=== PATIENT | male | born 1965 | race American Indian/Alaskan Native ===

== ENCOUNTER 2018-11-06 12:30 | Inpatient (IN) | payer MEDICARE ==
--- NOTE | 2018-11-06 12:43 | Event Note ---
ED Screening Note ED Screening Note: severe luq and chest pain recent rib trauma and rupt diaph. pmh chf aicd htn obese cig none etoh none drugs none does not recall home meds new to the area no fever no n/v/d This initial assessment/diagnostic orders/clinical plan/treatment(s) is/are subject to change based on patients health status, clinical progression and re- assessment by fellow clinical providers in the ED. Further treatment and workup at subsequent clinical providers discretion. Patient/guardian urged not to elope from the ED as their condition may be serious if not clinically assessed and managed. Initial orders include:
--- NOTE | 2018-11-06 13:35 | XRay Report ---
ROUTINE CHEST, TWO VIEWS: HISTORY: chest pain. No comparison. A single lead pacemaker device terminates in the right ventricle. Heart size and pulmonary vessels are within normal limits. A small left pleural effusion is identified. Otherwise, the lungs are clear. IMPRESSION: Small left pleural effusion.
[2018-11-06 13:50] LABS: Alanine Aminotransferase 20 units/L (7-56); Albumin 3.8 g/dL (3.9-5); BUN/Creatinine Ratio 9; Blood Urea Nitrogen 11 mg/dL (9-20); Calcium 9.6 mg/dL (8.4-10.2); Hemolysis Index 25
[2018-11-06 13:51] LABS: Hematocrit 43.2 % (35.5-45.6); Hemoglobin 14.2 gm/dl (11.8-15.2); Mean Corpuscular HGB Conc 33 % (32-34); Mean Corpuscular Volume 84 fl (84-94); Platelet Count 205 K/mm3 (140-440); Red Blood Count 5.16 M/mm3 (3.65-5.03)
[2018-11-06 14:34] LABS: Basophils % (Manual) 0 % (0.0-1.8); Total Cells Counted 100
[2018-11-06 14:35] LABS: Platelet Estimate Consistent w Auto
[2018-11-06] MEDS ORDERED: ZOFRAN IV ONE (14:36)
[2018-11-06] MEDS ORDERED: MORPHINE IV ONE (14:36)
[2018-11-06] MEDS ORDERED: TORADOL IV ONE (14:36)
[2018-11-06] MEDS ORDERED: ATROVENT IH ONE (16:56)
[2018-11-06] MEDS ORDERED: PROVENTIL IH ONE (16:56)
--- NOTE | 2018-11-06 17:15 | Emergency Department Report ---
ED Chest Pain HPI - General Chief Complaint: Abdominal Pain Stated Complaint: ABD PAIN/CP Time Seen by Provider: 11/06/18 12:43 Source: patient Mode of arrival: Stretcher Limitations: No Limitations - History of Present Illness Initial Comments: Patient is a 53-year-old male who has a past medical history of several broken ribs that occurred in June of this year as well as a "ruptured diagram" in August who is complaining of left sided flank and chest pain. Patient states that pain has been worsening for the past 2-3 days. States it is a very painful cough that is nonproductive. Patient has some shortness of breath as well. Patient denies fevers chills nausea vomiting diarrhea at this time. Patient denies any trauma. Patient has a history of congestive heart failure and COPD and does take nebulized treatments regularly. Severity scale (0 -10): 2 - Related Data Allergies Allergy/AdvReac Type Severity Reaction Status Date / Time doxycycline Allergy Hives Verified 11/06/18 12:40 lisinopril Allergy Anaphylaxis Verified 11/06/18 12:39 spironolactone Allergy Hives Verified 11/06/18 12:40 Heart Score - HEART Score History: Slightly suspicious EKG: Non-specific Age: 45-65 Risk factors: 1-2 risk factors Troponin: < normal limit HEART Score: 3 ED Review of Systems ROS: Stated complaint: ABD PAIN/CP Other details as noted in HPI Comment: All other systems reviewed and negative ED Past Medical Hx - Past Medical History Previous Medical History?: Yes Hx Congestive Heart Failure: Yes Hx COPD: Yes - Surgical History Past Surgical History?: Yes Additional Surgical History: Embolectomy ED Physical Exam - General Limitations: No Limitations General appearance: alert, in no apparent distress - Head Head exam: Present: atraumatic, normocephalic - Eye Eye exam: Present: normal appearance, PERRL, EOMI - ENT ENT exam: Present: mucous membranes moist - Neck Neck exam: Present: normal inspection - Respiratory Respiratory exam: Present: normal lung sounds bilaterally, rhonchi (lest base), chest wall tenderness (left lower ribs with crepitus when palpation of ribs). Absent: respiratory distress, wheezes, rales - Cardiovascular Cardiovascular Exam: Present: regular rate, normal rhythm, normal heart sounds. Absent: systolic murmur, diastolic murmur, rubs, gallop - GI/Abdominal GI/Abdominal exam: Present: soft, normal bowel sounds. Absent: distended, tenderness, guarding, rebound - Rectal Rectal exam: Present: deferred - Extremities Exam Extremities exam: Present: normal inspection - Back Exam Back exam: Present: normal inspection - Neurological Exam Neurological exam: Present: alert, oriented X3 - Psychiatric Psychiatric exam: Present: normal affect, normal mood - Skin Skin exam: Present: warm, dry, intact, normal color. Absent: rash ED Medical Decision Making - Lab Data Result diagrams: 11/06/18 13:04 11/06/18 13:04 Lab Results 11/06/18 11/06/18 Range/Units 13:04 13:04 WBC 4.9 (4.5-11.0) K/mm3 RBC 5.16 H (3.65-5.03) M/mm3 Hgb 14.2 (11.8-15.2) gm/dl Hct 43.2 (35.5-45.6) % MCV 84 (84-94) fl MCH 28 (28-32) pg MCHC 33 (32-34) % RDW 17.0 H (13.2-15.2) % Plt Count 205 (140-440) K/mm3 Fannin % (Auto) Bread Icer Add Manual Diff Complete Total Counted 100 Seg Neuts % (Manual) 66.0 (40.0-70.0) % Band Neutrophils % 0 % Lymphocytes % (Manual) 21.0 (13.4-35.0) % Reactive Lymphs % (Man) 0 % Monocytes % (Manual) 12.0 H (0.0-7.3) % Eosinophils % (Manual) 1.0 (0.0-4.3) % Basophils % (Manual) 0 (0.0-1.8) % Metamyelocytes % 0 % Myelocytes % 0 % Promyelocytes % 0 % Blast Cells % 0 % Nucleated RBC % Not Reportable Seg Neutrophils # Man 3.2 (1.8-7.7) K/mm3 Band Neutrophils # 0.0 K/mm3 Lymphocytes # (Manual) 1.0 L (1.2-5.4) K/mm3 Abs React Lymphs (Man) 0.0 K/mm3 Monocytes # (Manual) 0.6 (0.0-0.8) K/mm3 Eosinophils # (Manual) 0.0 (0.0-0.4) K/mm3 Basophils # (Manual) 0.0 (0.0-0.1) K/mm3 Metamyelocytes # 0.0 K/mm3 Myelocytes # 0.0 K/mm3 Promyelocytes # 0.0 K/mm3 Blast Cells # 0.0 K/mm3 WBC Morphology Not Reportable Hypersegmented Neuts Not Reportable Hyposegmented Neuts Not Reportable Hypogranular Neuts Not Reportable Smudge Cells Not Reportable Toxic Granulation Not Reportable Toxic Vacuolation Not Reportable Dohle Bodies Not Reportable Pelger-Huet Anomaly Not Reportable Maribell Rods Not Reportable Platelet Estimate Consistent w auto Clumped Platelets Not Reportable Plt Clumps, EDTA Not Reportable Large Platelets Not Reportable Giant Platelets Not Reportable Platelet Satelliting Not Reportable Plt Morphology Comment Not Reportable RBC Morphology Not Reportable Dimorphic RBCs Not Reportable Polychromasia Not Reportable Hypochromasia Not Reportable Poikilocytosis Not Reportable Anisocytosis Not Reportable Microcytosis Not Reportable Macrocytosis Not Reportable Spherocytes Not Reportable Pappenheimer Bodies Not Reportable Sickle Cells Not Reportable Target Cells Not Reportable Tear Drop Cells Not Reportable Ovalocytes Not Reportable Helmet Cells Not Reportable Retana-[place] Bodies Not Reportable Benton Rings Not Reportable Jessi Cells Not Reportable Bite Cells Not Reportable Crenated Cell Not Reportable Elliptocytes Few Acanthocytes (Spur) Not Reportable Rouleaux Not Reportable Hemoglobin C Crystals Not Reportable Schistocytes Not Reportable Malaria parasites Not Reportable Mil Bodies Not Reportable Hem Pathologist Commnt No Sodium 143 (137-145) mmol/L Potassium 4.7 (3.6-5.0) mmol/L Chloride 106.6 (98-107) mmol/L Carbon Dioxide 23 (22-30) mmol/L Anion Gap 18 mmol/L BUN 11 (9-20) mg/dL Creatinine 1.2 (0.8-1.5) mg/dL Estimated GFR > 60 ml/min BUN/Creatinine Ratio 9 % Glucose 85 (75-100) mg/dL Calcium 9.6 (8.4-10.2) mg/dL Total Bilirubin 0.40 (0.1-1.2) mg/dL AST 37 (5-40) units/L ALT 20 (7-56) units/L Alkaline Phosphatase 117 (35-129) units/L Troponin T < 0.010 (0.00-0.029) ng/mL Total Protein 7.0 (6.3-8.2) g/dL Albumin 3.8 L (3.9-5) g/dL Albumin/Globulin Ratio 1.2 % - EKG Data -: EKG Interpreted by Ms - EKG Data 11/06/18 17:15 EKG shows sinus rhythm a rate of 75 axis normal interval show prolonged QT but no ST segment elevations or depressions. Time of interpretation is 1255 - Radiology Data [facility] [address] [place] [address] XRay Report Signed Patient: SOBIA KRUGER MR#: [id number] : 1965 Acct:[id number] Age/Sex: 53 / M ADM Date: 11/06/18 Loc: ED Attending Dr: Ordering Physician: TANIA LANDRUM Date of Service: 11/06/18 Procedure(s): XR chest routine 2V Accession Number(s): [id number] cc: TANIA LANDRUM Fluoro Time In Minutes: ROUTINE CHEST, TWO VIEWS: HISTORY: chest pain. No comparison. A single lead pacemaker device terminates in the right ventricle. Heart size and pulmonary vessels are within normal limits. A small left pleural effusion is identified. Otherwise, the lungs are clear. IMPRESSION: Small left pleural effusion. Transcribed By: TTR Dictated By: CLARENCE ABRAMS JR, MD Electronically Authenticated By: CLARENCE ABRAMS JR, MD Signed Date/Time: 11/06/18 133 DD/ 1329 TD/TT: 11/06/18 1330 - Medical Decision Making Patient is a 53-year-old [place] male with a past medical history of recent rib fractures which are poorly healed as well as diaphragm rupture according to the patient is complaining of left upper flank pain. Patient's x-ray shows that the patient has a [id number] sized pleural effusion. Patient never had a pleural effusion in the past. Patient while in the emergency department and started having some wheezing and shortness of breath was given a neb treatment. Patient was given pain meds. Patient to be admitted to the hospitalist service at this time. Critical care attestation.: If time is entered above; I have spent that time in minutes in the direct care of this critically ill patient, excluding procedure time. ED Disposition Clinical Impression: Pleural effusion, Acute exacerbation of chronic obstructive pulmonary disease (COPD), Acute chest pain Disposition: OP ADMIT IP TO THIS HOSP Is pt being admited?: Yes Condition: Stable Instructions: Chronic Obstructive Pulmonary Disease (ED), Chest Pain (ED) Time of Disposition: 17:27
[2018-11-06] MEDS ORDERED: SODIUM CHLORIDE FLUSH SYRINGE 10 ML IV PRN (17:35)
[2018-11-06] MEDS ORDERED: TYLENOL PO PRN (17:35)
[2018-11-06] MEDS ORDERED: ZOFRAN IV PRN (17:35)
--- NOTE | 2018-11-06 17:35 | History and Physical Report ---
History of Present Illness Chief complaint: I keep coughing and it makes my side hurt, and im short of breath History of present illness: 53 YO Male with COPD, CHF, Obesity Hypoventilation presents to ED for evaluation . Pt states that he has experienced pain to his left flank over the past 3 days with worsening symptoms over the past 2 days. Pt reports coughing episodes followed by pain to the left flank. Pt also reports diaphragmatic injury 3 months ago and that the was informed that he may need surgery. Pt acknowledges shortness of breath, and nonproductive cough, increased nebulizer therapy without relief. Pt also reports dypsnea on exertion, dypsnea at rest, decreased exercise tolerance, Orthopnea/PND, as well as leg edema. Pt denies fever, chills, CP, Palpitations, NVD, Trauma, BRBPR, Prolonged travel/immobility, Unilateral leg swelling, calf pain, or recent ill contacts. Pt denies compliance with cardiac diet as well as medication. Pt unable to recall his prescribed medication. Pt transported to [facility] via private vehicle. Pt seen and evaluated in ED and found to have symptoms consistent with CHF Decompensation, as well as COPD Exacerbation. Pt admitted to telemetry. CT Chest pending at time of a dmission. No prior admission for review. No medication listed for reconciliation at time of admission. Past History Past Medical History: COPD, heart failure, other (Obesity Hypoventilation, Diaphragmatic injury,) Past Surgical History: Other (Embelectomy) Social history: single. denies: smoking, alcohol abuse, prescription drug abuse Family history: diabetes, hypertension Medications and Allergies Allergies Allergy/AdvReac Type Severity Reaction Status Date / Time doxycycline Allergy Hives Verified 11/06/18 12:40 lisinopril Allergy Anaphylaxis Verified 11/06/18 12:39 spironolactone Allergy Hives Verified 11/06/18 12:40 Review of Systems Constitutional: no weight loss, no weight gain, no fever Ears, nose, mouth and throat: no ear pain, no ear discharge, no tinnitis, no decreased hearing Cardiovascular: orthopnea, edema, shortness of breath, dyspnea on exertion, paroxysmal nocturnal dyspnea, decreased exercise tolerance, no chest pain, no syncope Respiratory: cough, shortness of breath, dyspnea on exertion, no cough with sputum, no excessive sputum, no wheezing Gastrointestinal: no nausea, no vomiting, no diarrhea, no constipation Genitourinary Male: no hematuria, no flank pain, no discharge, no urinary frequency, no urinary hesitancy Rectal: no pain, no incontinence, no bleeding Musculoskeletal: no neck stiffness Integumentary: no rash, no pruritis, no redness, no sores Neurological: no transient paralysis, no paralysis, no weakness, no parathesias, no numbness Psychiatric: no anxiety, no memory loss, no change in sleep habits, no sleep disturbances Endocrine: no cold intolerance, no heat intolerance, no polyphagia, no excessive thirst, no polydipsia, no polyuria Hematologic/Lymphatic: no easy bruising, no easy bleeding Allergic/Immunologic: no urticaria, no allergic rhinitis, no wheezing Exam - Constitutional General appearance: Present: mild distress - EENT Eyes: Present: PERRL ENT: hearing intact, clear oral mucosa - Neck Neck: Present: supple, normal ROM - Respiratory Respiratory effort: normal Respiratory: bilateral: diminished, rhonchi - Cardiovascular Heart Sounds: Present: S1 & S2. Absent: rub, click - Extremities Extremities: pulses symmetrical Extremity abnormal: edema Peripheral Pulses: within normal limits - Abdominal General gastrointestinal: Present: soft, non-tender, non-distended, normal bowel sounds Male genitourinary: Present: normal - Integumentary Integumentary: Present: clear, warm, dry - Musculoskeletal Musculoskeletal: gait normal, strength equal bilaterally - Psychiatric Psychiatric: appropriate mood/affect, intact judgment & insight - Neurologic Neurologic: CNII-XII intact, moves all extremities - Additional findings Additional findings: Left chest wall tenderness with palpation in area of the left flank at site of previous rib fractures. Results - Labs CBC & Chem 7: 11/07/18 05:06 11/07/18 05:06 Labs: Abnormal lab results 11/06/18 11/06/18 Range/Units 13:04 13:04 RBC 5.16 H (3.65-5.03) M/mm3 RDW 17.0 H (13.2-15.2) % Monocytes % (Manual) 12.0 H (0.0-7.3) % Lymphocytes # (Manual) 1.0 L (1.2-5.4) K/mm3 Albumin 3.8 L (3.9-5) g/dL Assessment and Plan - Patient Problems (1) CHF (congestive heart failure) Current Visit: Yes Status: Acute Qualifiers: Heart failure chronicity: acute on chronic Plan to address problem: Admit to telemetry, cardiology consult, Echo, strict I/O, daily weight, bnp, thyroid panel, magnesium level, chest x ray, monitor uop q shift, monitor blood pressure q shift, afterload reduction. pulse oximetry (2) Obesity hypoventilation syndrome Current Visit: Yes Status: Acute Plan to address problem: supplemental oxygen, nebulizer therapy, NIPPV as clinically indicated. 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
--- NOTE | 2018-11-06 17:46 | Cat Scan Report ---
PROCEDURE: CT CHEST W CON TECHNIQUE: Computerized axial tomography of the chest was performed during the IV injection of iodin ated nonionic contrast. CT DOSE LENGTH PRODUCT: 1226.3 mGycm HISTORY: left sided pleural effusion hx of diaphragm injusy COMPARISONS: None . FINDINGS: Pulmonary out flow tract, right and left main pulmonary arteries: No abnormality is seen. Pericardium: No evidence of pericardial effusion. Thoracic aorta: No evidence of aneurysmal dilatation or dissection. Coronary arteries: There are unremarkable. Mediastinum and hilar regions: Non specific subcentimeter lymph nodes are visualized. No pathologica lly enlarged lymph nodes or masses are identified. Lung Arredondo: There is a large mass with fat density visualized in the left pleural space. This extend s craniocaudally posteriorly approximately 12 cm, transversely approximately 10.5 cm in craniocaudal lateral aspect of the mass approximately 3.1 cm. Large lipoma or lipomatosis of the left pleural spac e is suspected. Liposarcoma is not entirely excluded. There appears to be a small amount of adjacent atelectasis. Moderate diffuse emphysematous changes are present, greatest in the upper lobes. No effu sions are identified. Upper abdomen: There is mild increased density dependently in the gallbladder. This may represent a small amount of sludge. No formed stones are visualized. Consider follow-up gallbladder ultrasound. U pper abdomen otherwise is unremarkable. Other: Old healed fractures of the left seventh and eighth ribs visualized. Fractures of the left eduin th and 10th ribs are also visualized with callus formation although incomplete bony union. Pacemaker implanted in the left side of the chest. Cardiac leads visualized right side of the heart. IMPRESSION: Large fat density visualized left pleural space inferiorly, laterally and posteriorly as described. T his may represent a large lipoma or lipomatosis of the pleural space. Liposarcoma cannot entirely exc luded. Comparison with prior CT scans would be helpful. Moderate emphysematous changes present diffusely bilaterally, greatest in the upper lobes. Pacemaker in place as described. Subtle increased density dependently in the gallbladder. There may be sludge or noncalcified gallston es. Consider follow-up gallbladder ultrasound. Left rib fractures as described. This document is electronically signed by Main Pastor MD., November 06 2018 05:43:54 PM ET
[2018-11-06 20:41] LABS: Free T4 (Free Thyroxine) 1.63 ng/dL (0.76-1.46)
[2018-11-06] MEDS: ROXICODONE PO PRN (20:56)
[2018-11-06] MEDS: PEPCID PO SCH (21:03)
[2018-11-06] MEDS: SODIUM CHLORIDE FLUSH SYRINGE 10 ML IV SCH (21:03)
[2018-11-07] MEDS: ROXICODONE PO PRN ×5 (01:26→21:02)
[2018-11-07 02:01] LABS: Bilirubin,Urine NEG (Negative); Blood,Urine SM (Negative); Color,Urine Amber (Yellow); Mucus,Urine 3+ /HPF
[2018-11-07 05:56] LABS: Hematocrit 38.6 % (35.5-45.6); Hemoglobin 12.7 gm/dl (11.8-15.2); Mean Corpuscular HGB Conc 33 % (32-34); Mean Corpuscular Volume 83 fl (84-94); Platelet Count 183 K/mm3 (140-440); Red Blood Count 4.65 M/mm3 (3.65-5.03); Red Cell Distribution Width 16.3 % (13.2-15.2)
[2018-11-07 06:27] LABS: Alanine Aminotransferase 18 units/L (7-56); Albumin 3.4 g/dL (3.9-5); BUN/Creatinine Ratio 11; Blood Urea Nitrogen 14 mg/dL (9-20); Calcium 8.7 mg/dL (8.4-10.2); Hemolysis Index 15
[2018-11-07 06:45] LABS: RBC Morphology Normal; Total Cells Counted 100
[2018-11-07] MEDS: SOLU-Medrol IV SCH ×2 (10:35→21:03)
[2018-11-07] MEDS: PEPCID PO SCH ×2 (10:35→21:02)
[2018-11-07] MEDS: SODIUM CHLORIDE FLUSH SYRINGE 10 ML IV SCH ×2 (10:35→21:04)
--- NOTE | 2018-11-07 10:50 | Consultation ---
<JOO HOLDER - Last Filed: 11/07/18 12:36> History of Present Illness Consult date: 11/07/18 Consult reason: congestive heart failure History of present illness: This is a 53-year old male who recently transition from [place] to [place]. Patient reports a history of non-ischemic cardiomyopathy and has an indwelling cardiac defibrillator. 5-6 months ago, patient states he had a repeat cardiac cath that he reports as normal. No coronary intervention required. Patient also gives a history of paroxysmal atrial fibrillation, on Xarelto for oral anticoagulation. He presents to this hospital with complaints of left sided flank pain and chest pain. Patient reports a history of left ribs fractures that occurred in June of this year and reports he suffered a ruptured diagram in August. Chest CT scan reports a large lipoma versus lipomatosis of the left pleural space, moderate emphysematous changes and multiple left healed fractured ribs. A cardiac consultation has been requested for CHF. Patient denies unusual shortness of breath and there is no lower extremity edema. Patient denies AICD discharge. A chest x-ray reports small pleural effusion but no evidence of interstitial edema. His ECG is sinus rhythm, no acute ischemic changes. Past History Social history: single. denies: smoking, alcohol abuse, prescription drug abuse Family history: diabetes, hypertension Medications and Allergies Allergies Allergy/AdvReac Type Severity Reaction Status Date / Time doxycycline Allergy Hives Verified 11/06/18 12:40 lisinopril Allergy Anaphylaxis Verified 11/06/18 12:39 spironolactone Allergy Hives Verified 11/06/18 12:40 Home Medications Medication Instructions Recorded Confirmed Last Taken Type Albuterol 0.63% NEBS 2.5 mg INHALATION Q4H PRN 11/07/18 11/07/18 2 Days Ago History ~11/05/18 2.5MG Amiodarone 200 mg PO QDAY 11/07/18 11/07/18 2 Days Ago History ~11/05/18 200MG Cymbalta 60 mg PO QDAY 11/07/18 11/07/18 2 Days Ago History ~11/05/18 60MG Dulera 200 Mcg/5 Mcg Inhaler 200 mcg INHALATION BID 11/07/18 11/07/18 1 Day Ago History ~11/06/18 2 PUFFS Lasix TAB 40 mg PO QDAY 11/07/18 11/07/18 2 Days Ago History ~11/05/18 40MG Lopressor TAB 25 mg PO BID 11/07/18 11/07/18 1 Day Ago History ~11/06/18 25MG ProAir HFA Inhaler 2 puff IH Q4HR PRN 11/07/18 11/07/18 1 Day Ago History ~11/06/18 2 PUFFS Xarelto 10 mg PO QDAY 11/07/18 11/07/18 2 Days Ago History ~11/05/18 Active Meds: Active Medications Acetaminophen (Tylenol) 650 mg PO Q4H PRN PRN Reason: Pain MILD(1-3)/Fever >100.5/LEON Albuterol (Proventil) 2.5 mg IH Q4HRT PRN PRN Reason: Shortness Of Breath Famotidine (Pepcid) 20 mg PO BID [facility] Last Admin: 11/07/18 10:35 Dose: 20 mg Documented by: Methylprednisolone Sodium Succinate (Solu-Medrol) 20 mg IV Q12HR [facility] Last Admin: 11/07/18 10:35 Dose: 20 mg Documented by: Ondansetron HCl (Zofran) 4 mg IV Q8H PRN PRN Reason: Nausea And Vomiting Oxycodone HCl (Roxicodone) 5 mg PO Q4H PRN PRN Reason: Pain, Moderate (4-6) Last Admin: 11/07/18 10:35 Dose: 5 mg Documented by: Sodium Chloride (Sodium Chloride Flush Syringe 10 Ml) 10 ml IV BID [facility] Last Admin: 11/07/18 10:35 Dose: 10 ml Documented by: Sodium Chloride (Sodium Chloride Flush Syringe 10 Ml) 10 ml IV PRN PRN PRN Reason: LINE FLUSH Physical Examination Vital Signs Temp Pulse Resp BP Pulse Ox 98 F 87 18 129/89 93 11/06/18 18:29 11/06/18 18:29 11/06/18 18:29 11/06/18 18:29 11/06/18 18:29 General appearance: no acute distress HEENT: Positive: PERRL Neck: Positive: trachea midline Cardiac: Positive: Reg Rate and Rhythm Lungs: Positive: Decreased Breath Sounds Neuro: Positive: Grossly Intact Extremities: Absent: edema Results 11/07/18 05:06 11/07/18 05:06 Cardiac Enzymes 11/06/18 11/07/18 Range/Units 13:04 05:06 AST 37 32 (5-40) units/L CBC 11/06/18 11/07/18 Range/Units 13:04 05:06 WBC 4.9 3.9 L (4.5-11.0) K/mm3 RBC 5.16 H 4.65 (3.65-5.03) M/mm3 Hgb 14.2 12.7 (11.8-15.2) gm/dl Hct 43.2 38.6 (35.5-45.6) % Plt Count 205 183 (140-440) K/mm3 Comprehensive Metabolic Panel 11/06/18 11/07/18 Range/Units 13:04 05:06 Sodium 143 142 (137-145) mmol/L Potassium 4.7 4.4 (3.6-5.0) mmol/L Chloride 106.6 105.6 (98-107) mmol/L Carbon Dioxide 23 23 (22-30) mmol/L BUN 11 14 (9-20) mg/dL Creatinine 1.2 1.3 (0.8-1.5) mg/dL Glucose 85 88 (75-100) mg/dL Calcium 9.6 8.7 (8.4-10.2) mg/dL AST 37 32 (5-40) units/L ALT 20 18 (7-56) units/L Alkaline Phosphatase 117 106 (35-129) units/L Total Protein 7.0 6.0 L (6.3-8.2) g/dL Albumin 3.8 L 3.4 L (3.9-5) g/dL Assessment and Plan Left sided flank pain Chest CT scan reports a large lipoma versus lipomatosis of the left pleural space, moderate emphysematous changes and multiple left healed fractured ribs. Atypical chest pain Hx of COPD Hx of Nonischemic cardiomyopathy Presence of AICD Hx of paroxysmal Afib on Xarelto as an outpatient. Tobacco abuse Recommendations: Resume home medications. Obtain prior cardiac records for review. Echocardiogram for LVEF assessment. <EYAL ALFREDO - Last Filed: 11/07/18 13:01> Medications and Allergies Active Meds: Active Medications Acetaminophen (Tylenol) 650 mg PO Q4H PRN PRN Reason: Pain MILD(1-3)/Fever >100.5/LEON Albuterol (Proventil) 2.5 mg IH Q4HRT PRN PRN Reason: Shortness Of Breath Famotidine (Pepcid) 20 mg PO BID [facility] Last Admin: 11/07/18 10:35 Dose: 20 mg Documented by: Losartan Potassium (Cozaar) 25 mg PO QDAY [facility] Methylprednisolone Sodium Succinate (Solu-Medrol) 20 mg IV Q12HR [facility] Last Admin: 11/07/18 10:35 Dose: 20 mg Documented by: Ondansetron HCl (Zofran) 4 mg IV Q8H PRN PRN Reason: Nausea And Vomiting Oxycodone HCl (Roxicodone) 5 mg PO Q4H PRN PRN Reason: Pain, Moderate (4-6) Last Admin: 11/07/18 10:35 Dose: 5 mg Documented by: Sodium Chloride (Sodium Chloride Flush Syringe 10 Ml) 10 ml IV BID [facility] Last Admin: 11/07/18 10:35 Dose: 10 ml Documented by: Sodium Chloride (Sodium Chloride Flush Syringe 10 Ml) 10 ml IV PRN PRN PRN Reason: LINE FLUSH Physical Examination Vital Signs Temp Pulse Resp BP Pulse Ox 98 F 87 18 129/89 93 11/06/18 18:29 11/06/18 18:29 11/06/18 18:29 11/06/18 18:29 11/06/18 18:29 Results 11/07/18 05:06 11/07/18 05:06 Cardiac Enzymes 11/06/18 11/07/18 Range/Units 13:04 05:06 AST 37 32 (5-40) units/L CBC 11/06/18 11/07/18 Range/Units 13:04 05:06 WBC 4.9 3.9 L (4.5-11.0) K/mm3 RBC 5.16 H 4.65 (3.65-5.03) M/mm3 Hgb 14.2 12.7 (11.8-15.2) gm/dl Hct 43.2 38.6 (35.5-45.6) % Plt Count 205 183 (140-440) K/mm3 Comprehensive Metabolic Panel 11/06/18 11/07/18 Range/Units 13:04 05:06 Sodium 143 142 (137-145) mmol/L Potassium 4.7 4.4 (3.6-5.0) mmol/L Chloride 106.6 105.6 (98-107) mmol/L Carbon Dioxide 23 23 (22-30) mmol/L BUN 11 14 (9-20) mg/dL Creatinine 1.2 1.3 (0.8-1.5) mg/dL Glucose 85 88 (75-100) mg/dL Calcium 9.6 8.7 (8.4-10.2) mg/dL AST 37 32 (5-40) units/L ALT 20 18 (7-56) units/L Alkaline Phosphatase 117 106 (35-129) units/L Total Protein 7.0 6.0 L (6.3-8.2) g/dL Albumin 3.8 L 3.4 L (3.9-5) g/dL Assessment and Plan I've seen and evaluated the patient and agree with the assessment and plan as above. Patient has a history of atypical chest pain, COPD, nonischemic cardiomyopathy with the presence of an AICD, and a history of paroxysmal atrial fibrillation on Xarelto as an outpatient for CVA prophylaxis. At this time the patient has been off of his medical therapy. We will restart the patient's medical therapy. Will check echocardiogram for LV function.
--- NOTE | 2018-11-07 15:09 | Progress Note ---
Assessment and Plan Assessment and plan: 53 YO Male with COPD, CHF, Obesity Hypoventilation presents to ED for evaluation. Pt states that he has experienced pain to his left flank over the past 3 days with worsening symptoms over the past 2 days. Pt reports coughing episodes followed by pain to the left flank. Pt also reports diaphragmatic inju ry 3 months ago and that the was informed that he may need surgery. Pt acknowledges shortness of breath, and nonproductive cough, increased nebulizer therapy without relief. Pt also reports dypsnea on exertion, dypsnea at rest, decreased exercise tolerance, Orthopnea/PND, as well as leg edema. Pt denies fever, chills, CP, Palpitations, NVD, Trauma, BRBPR, Prolonged travel/immobility, Unilateral leg swelling, calf pain, or recent ill contacts. Pt denies compliance with cardiac diet as well as medication. Pt unable to recall his prescribed medication. Pt transported to [facility] via private vehicle. Pt seen and evaluated in ED and found to have symptoms consistent with CHF Decompensation, as well as COPD Exacerbation. Pt admitted to telemetry. CT Chest pending at time of admission. No prior admission for review. No medication listed for reconciliation at time of admission. - Patient Problems (1) CHF (congestive heart failure) Current Visit: Yes Status: Acute Qualifiers: Heart failure chronicity: acute on chronic Plan to address problem: Continue current management, await cardiology consult, Echo, strict I/O, daily weight, bnp, thyroid panel, magnesium level, chest x ray, monitor uop q shift, monitor blood pressure q shift, afterload reduction. pulse oximetry (2) Obesity hypoventilation syndrome Current Visit: Yes Status: Acute Plan to address problem: supplemental oxygen, nebulizer therapy, NIPPV as clinically indicated. 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 History Interval history: Patient seen and examined this morning, improving some. Unfortunately reports multiple medical condition and has a hx of violent cough which was felt to have contributed in the rib fractures prior. He recently moved to [place] and has not established care Hospitalist Physical - Physical exam Narrative exam: - EENT Eyes: Present: PERRL ENT: hearing intact, clear oral mucosa - Neck Neck: Present: supple, normal ROM - Respiratory Respiratory effort: normal Respiratory: bilateral: diminished, rhonchi - Cardiovascular Heart Sounds: Present: S1 & S2. Absent: rub, click - Extremities Extremities: pulses symmetrical Extremity abnormal: edema Peripheral Pulses: within normal limits - Abdominal General gastrointestinal: Present: soft, non-tender, non-distended, normal bowel sounds Male genitourinary: Present: normal - Integumentary Integumentary: Present: clear, warm, dry - Musculoskeletal Musculoskeletal: gait normal, strength equal bilaterally - Psychiatric Psychiatric: appropriate mood/affect, intact judgment & insight - Neurologic Neurologic: CNII-XII intact, moves all extremities - Additional findings Additional findings: Left chest wall tenderness with palpation in area of the left flank at site of previous rib fractures. - Constitutional Vitals: Temp Pulse Resp BP Pulse Ox 97.5 F L 79 18 129/90 95 11/07/18 09:00 11/07/18 03:44 11/07/18 09:00 11/07/18 09:00 11/07/18 12:04 General appearance: Present: no acute distress Results - Labs CBC & Chem 7: 11/07/18 05:06 11/07/18 05:06 Labs: Laboratory Last Values WBC 3.9 K/mm3 (4.5-11.0) L 11/07/18 05:06 RBC 4.65 M/mm3 (3.65-5.03) 11/07/18 05:06 Hgb 12.7 gm/dl (11.8-15.2) 11/07/18 05:06 Hct 38.6 % (35.5-45.6) 11/07/18 05:06 MCV 83 fl (84-94) L 11/07/18 05:06 MCH 27 pg (28-32) L 11/07/18 05:06 MCHC 33 % (32-34) 11/07/18 05:06 RDW 16.3 % (13.2-15.2) H 11/07/18 05:06 Plt Count 183 K/mm3 (140-440) 11/07/18 05:06 [place] % (Auto) Community Relations Rep 11/07/18 05:06 Add Manual Diff Complete 11/07/18 05:06 Total Counted 100 11/07/18 05:06 Seg Neuts % (Manual) 52.0 % (40.0-70.0) 11/07/18 05:06 0 % 11/07/18 05:06 23.0 % (13.4-35.0) 11/07/18 05:06 Reactive Lymphs % (Man) 0 % 11/07/18 05:06 20.0 % (0.0-7.3) H 11/07/18 05:06 4.0 % (0.0-4.3) 11/07/18 05:06 1.0 % (0.0-1.8) 11/07/18 05:06 0 % 11/07/18 05:06 0 % 11/07/18 05:06 0 % 11/07/18 05:06 0 % 11/07/18 05:06 Nucleated RBC % Not Reportable 11/07/18 05:06 Seg Neutrophils # Man 2.0 K/mm3 (1.8-7.7) 11/07/18 05:06 Band Neutrophils # 0.0 K/mm3 11/07/18 05:06 0.9 K/mm3 (1.2-5.4) L 11/07/18 05:06 Abs React Lymphs (Man) 0.0 K/mm3 11/07/18 05:06 0.8 K/mm3 (0.0-0.8) 11/07/18 05:06 0.2 K/mm3 (0.0-0.4) 11/07/18 05:06 0.0 K/mm3 (0.0-0.1) 11/07/18 05:06 0.0 K/mm3 11/07/18 05:06 0.0 K/mm3 11/07/18 05:06 0.0 K/mm3 11/07/18 05:06 Blast Cells # 0.0 K/mm3 11/07/18 05:06 WBC Morphology Not Reportable 11/07/18 05:06 Hypersegmented Neuts Not Reportable 11/07/18 05:06 Hyposegmented Neuts Not Reportable 11/07/18 05:06 Hypogranular Neuts Not Reportable 11/07/18 05:06 Not Reportable 11/07/18 05:06 Not Reportable 11/07/18 05:06 Not Reportable 11/07/18 05:06 Not Reportable 11/07/18 05:06 Not Reportable 11/07/18 05:06 Not Reportable 11/07/18 05:06 Not Reportable 11/07/18 05:06 Not Reportable 11/07/18 05:06 Plt Clumps, EDTA Not Reportable 11/07/18 05:06 Not Reportable 11/07/18 05:06 Not Reportable 11/07/18 05:06 Not Reportable 11/07/18 05:06 Plt Morphology Comment Not Reportable 11/07/18 05:06 RBC Morphology Normal 11/07/18 05:06 Dimorphic RBCs Not Reportable 11/07/18 05:06 Not Reportable 11/07/18 05:06 Not Reportable 11/07/18 05:06 Not Reportable 11/07/18 05:06 Not Reportable 11/07/18 05:06 Not Reportable 11/07/18 05:06 Not Reportable 11/07/18 05:06 Not Reportable 11/07/18 05:06 Not Reportable 11/07/18 05:06 Not Reportable 11/07/18 05:06 Not Reportable 11/07/18 05:06 Not Reportable 11/07/18 05:06 Not Reportable 11/07/18 05:06 Not Reportable 11/07/18 05:06 Not Reportable 11/07/18 05:06 Not Reportable 11/07/18 05:06 Not Reportable 11/07/18 05:06 Not Reportable 11/07/18 05:06 Not Reportable 11/07/18 05:06 Not Reportable 11/07/18 05:06 Acanthocytes (Spur) Not Reportable 11/07/18 05:06 Rouleaux Not Reportable 11/07/18 05:06 Not Reportable 11/07/18 05:06 Not Reportable 11/07/18 05:06 Not Reportable 11/07/18 05:06 Not Reportable 11/07/18 05:06 Hem Pathologist Commnt No 11/07/18 05:06 Sodium 142 mmol/L (137-145) 11/07/18 05:06 Potassium 4.4 mmol/L (3.6-5.0) 11/07/18 05:06 Chloride 105.6 mmol/L (98-107) 11/07/18 05:06 Carbon Dioxide 23 mmol/L (22-30) 11/07/18 05:06 18 mmol/L 11/07/18 05:06 BUN 14 mg/dL (9-20) 11/07/18 05:06 1.3 mg/dL (0.8-1.5) 11/07/18 05:06 Estimated GFR > 60 ml/min 11/07/18 05:06 11 % 11/07/18 05:06 Glucose 88 mg/dL (75-100) 11/07/18 05:06 Calcium 8.7 mg/dL (8.4-10.2) 11/07/18 05:06 Magnesium 2.30 mg/dL (1.7-2.3) 11/06/18 19:43 0.30 mg/dL (0.1-1.2) 11/07/18 05:06 AST 32 units/L (5-40) 11/07/18 05:06 ALT 18 units/L (7-56) 11/07/18 05:06 106 units/L (35-129) 11/07/18 05:06 < 0.010 ng/mL (0.00-0.029) 11/06/18 13:04 NT-Pro-B Natriuret Pep 913.6 pg/mL (0-900) H 11/06/18 19:43 6.0 g/dL (6.3-8.2) L 11/07/18 05:06 3.4 g/dL (3.9-5) L 11/07/18 05:06 1.3 % 11/07/18 05:06 TSH 0.950 mlU/mL (0.270-4.200) 11/06/18 19:43 Free T4 1.63 ng/dL (0.76-1.46) H 11/06/18 19:43 Yumiko (Yellow) 11/06/18 01:30 Slightly-cloudy (Clear) 11/06/18 01:30 5.0 (5.0-7.0) 11/06/18 01:30 Ur Specific [place] > 1.030 (1.003-1.030) H 11/06/18 01:30 30 mg/dl mg/dL (Negative) 11/06/18 01:30 Neg mg/dL (Negative) 11/06/18 01:30 Neg mg/dL (Negative) 11/06/18 01:30 Sm (Negative) 11/06/18 01:30 Neg (Negative) 11/06/18 01:30 Neg (Negative) 11/06/18 01:30 2.0 mg/dL (<2.0) 11/06/18 01:30 Ur Leukocyte Esterase Neg (Negative) 11/06/18 01:30 2.0 /HPF (0.0-6.0) 11/06/18 01:30 3.0 /HPF (0.0-6.0) 11/06/18 01:30 U Epithel Cells (Auto) 1.0 /HPF (0-13.0) 11/06/18 01:30 3+ /HPF 11/06/18 01:30 Active Medications - Current Medications Current Medications: Generic Name Dose Route Start Last Admin Trade Name Freq PRN Reason Stop Dose Admin Acetaminophen 650 mg 11/06/18 17:35 Tylenol PO Q4H PRN Pain MILD(1-3)/Fever >100.5/LEON Albuterol 2.5 mg 11/06/18 17:35 Proventil IH Q4HRT PRN Shortness Of Breath Famotidine 20 mg 11/06/18 22:00 11/07/18 10:35 Pepcid PO 20 mg BID [facility] Administration Losartan Potassium 25 mg 11/08/18 10:00 Cozaar PO QDAY [facility] Methylprednisolone Sodium Succinate 20 mg 11/07/18 10:00 11/07/18 10:35 Solu-Medrol IV 20 mg Q12HR [facility] Administration Ondansetron HCl 4 mg 11/06/18 17:35 Zofran IV Q8H PRN Nausea And Vomiting Oxycodone HCl 5 mg 11/06/18 20:42 11/07/18 14:55 Roxicodone PO 5 mg Q4H PRN Administration Pain, Moderate (4-6) Sodium Chloride 10 ml 11/06/18 22:00 11/07/18 10:35 Sodium Chloride Flush Syringe 10 Ml IV 10 ml BID [facility] Administration Sodium Chloride 10 ml 11/06/18 17:35 Sodium Chloride Flush Syringe 10 Ml IV PRN PRN LINE FLUSH
--- NOTE | 2018-11-07 16:30 | Cat Scan Report ---
PROCEDURE: CT ABDOMEN PELVIS W CON TECHNIQUE: Computerized axial tomography of the abdomen and pelvis was performed after the administr ation of IV iodinated nonionic contrast. CT DOSE LENGTH PRODUCT: 3808 mGycm HISTORY: diaphragmatic injury COMPARISONS: None . FINDINGS: Lower Lung arreaga: There is a large amount of fat density visualized in the left lung base extending superiorly/posteriorly. Examination of the upper abdomen shows a diaphragmatic defect inferiorly and laterally/anteriorly on the left. Mesentery or omentum is seen extending superiorly into the left pl eural space. This is best visualized on sagittal reconstruction image 333 series 300 and several tari cent images. This is also visualized on axial image 25 series 4 and coronal reconstruction image [id number] series 301. There are fractures of the left eighth and ninth ribs posterior laterally with incompl ete bony union. Old healed fractures of the left sixth and seventh ribs laterally are also visualized . Small amount of dependent atelectasis appears be present on the left. There is minimal fibrotic eleazar nge in the inferior medial aspect of the right lower lobe. Cardiac leads visualized in the right side of the heart. Upper Abdomen: The liver, the gallbladder, the adrenal glands, the pancreas and spleen are unremarka ble. Kidneys, Ureters and Urinary bladder: No abnormalities are seen. Retroperitoneum: Atherosclerotic changes are seen in the abdominal aorta. No aneurysm is visualized. Nonspecific subcentimeter lymph nodes are seen in the retroperitoneum. No pathologically enlarged ly mph nodes are identified. Bowel: No abnormalities are identified. No evidence of bowel obstruction, ascites or free intraperit gray gas. Normal-appearing appendix is visualized in the right lower quadrant. Minimal umbilical her torsten containing adipose tissue visualized. Reproductive organs: The prostate gland does not appear to be significantly enlarged. Other: There is a geographic lesion with sclerotic margins involving the right femoral head along the weightbearing surface extending over approximately 1.8 cm. The appearance suggests avascular necrosi s. There is no deformity or collapse. IMPRESSION: Old left rib fractures visualized as described above. Please see above comments. There is incomplete bony union of the fractures involving the left eighth and ninth ribs. Focal defect visualized in the anterior lateral inferior aspect of the left diaphragm. Large amount o f adipose tissue herniated from the abdomen into the left pleural space as described. A small amount of atelectasis appears be present in the lung bases. 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 There is no deformity or collapse. Minimal umbilical hernia as described. This document is electronically signed by Main Pastor MD., November 07 2018 04:27:38 PM ET
--- NOTE | 2018-11-07 18:43 | Consultation ---
History of Present Illness Consult date: 11/07/18 Reason for consult: dyspnea, cough, chest pain, COPD, pleural effusion, other (Left rib fractures and left diaphragmatic hernia.) History of present illness: PULMONARY AND CRITICAL CARE CONSULTATION DR. Sánchez THANK YOU FOR ASKING US TO PARTICIPATE IN THE CARE OF THIS PATIENT. 53 YO Male with COPD, CHF, Obesity Hypoventilation presents to ED for evaluation. Pt states that he has experienced pain to his left flank over the past 3 days with worsening symptoms over the past 2 days. Pt reports coughing episodes followed by pain to the left flank. Pt also reports diaphragmatic injury 3 months ago and that the was informed that he may need surgery. Pt acknowledges shortness of breath, and nonproductive cough, increased nebulizer therapy without relief. Pt also reports dypsnea on exertion, dypsnea at rest, decreased exercise tolerance, Orthopnea/PND, as well as leg edema. Pt denies fev er, chills, CP, Palpitations, NVD, Trauma, BRBPR, Prolonged travel/immobility, Unilateral leg swelling, calf pain, or recent ill contacts. Pt denies compliance with cardiac diet as well as medication. Pt unable to recall his prescribed medication. Pt transported to [facility] via private vehicle. Pt seen and evaluated in ED and found to have symptoms consistent with CHF Decompensation, as well as COPD Exacerbation. Pt admitted to telemetry. CT Chest pending at time of admission. No prior admission for review. No medication listed for reconciliation at time of admission. Patient still complaining left chest pain and left flank pain with cough. Patient presently on room air . O2 saturation 93%. Patient has history of smoking 1 to 2 cigaretts a day for 40 years. Denies alcohol or drug abuse. Worked different jobs, labor and resturant job. Patient and has 3 children. Allergic to doxycycline,Lisonipril, Spiranolactone. CAT scan of chest done on 11/06/18 IMPRESSION: Large fat density visualized left pleural space inferiorly, laterally and posteriorly as described. This may represent a large lipoma or lipomatosis of the pleural space. Liposarcoma cannot entirely excluded. Comparison with prior CT scans would be helpful. Moderate emphysematous changes present diffusely bilaterally, greatest in the upper lobes. Pacemaker in place as described. Subtle increased density dependently in the gallbladder. There may be sludge or noncalcified gallstones. Consider follow-up gallbladder ultrasound. Left rib fractures as described. Records from [facility] in [place] CAT scan done 10/14/18 reported diaphragmatic hernia with herniation of large Omental fat in the left lower chest. Reported consistent with diaphragmatic hernia. Old left rib fractures. Emphysematous changes in both lungs. Past History Past Medical History: COPD, heart failure, other (Obesity Hypoventilation, Diaphragmatic injury,) Past Surgical History: Other (Embelectomy) Social history: single, smoking. denies: alcohol abuse, prescription drug abuse Family history: diabetes, hypertension Medications and Allergies Allergies Allergy/AdvReac Type Severity Reaction Status Date / Time doxycycline Allergy Hives Verified 11/06/18 12:40 lisinopril Allergy Anaphylaxis Verified 11/06/18 12:39 spironolactone Allergy Hives Verified 11/06/18 12:40 Home Medications Medication Instructions Recorded Confirmed Last Taken Type Albuterol 0.63% NEBS 2.5 mg INHALATION Q4H PRN 11/07/18 11/07/18 2 Days Ago History ~11/05/18 2.5MG Amiodarone 200 mg PO QDAY 11/07/18 11/07/18 2 Days Ago History ~11/05/18 200MG Cymbalta 60 mg PO QDAY 11/07/18 11/07/18 2 Days Ago History ~11/05/18 60MG Dulera 200 Mcg/5 Mcg Inhaler 200 mcg INHALATION BID 11/07/18 11/07/18 1 Day Ago History ~11/06/18 2 PUFFS Lasix TAB 40 mg PO QDAY 11/07/18 11/07/18 2 Days Ago History ~11/05/18 40MG Lopressor TAB 25 mg PO BID 11/07/18 11/07/18 1 Day Ago History ~11/06/18 25MG ProAir HFA Inhaler 2 puff IH Q4HR PRN 11/07/18 11/07/18 1 Day Ago History ~11/06/18 2 PUFFS Xarelto 10 mg PO QDAY 11/07/18 11/07/18 2 Days Ago History ~11/05/18 Active Meds: Active Medications Acetaminophen (Tylenol) 650 mg PO Q4H PRN PRN Reason: Pain MILD(1-3)/Fever >100.5/LEON Albuterol (Proventil) 2.5 mg IH Q4HRT PRN PRN Reason: Shortness Of Breath Famotidine (Pepcid) 20 mg PO BID [facility] Last Admin: 11/07/18 10:35 Dose: 20 mg Documented by: Losartan Potassium (Cozaar) 25 mg PO QDAY [facility] Methylprednisolone Sodium Succinate (Solu-Medrol) 20 mg IV Q12HR [facility] Last Admin: 11/07/18 10:35 Dose: 20 mg Documented by: Ondansetron HCl (Zofran) 4 mg IV Q8H PRN PRN Reason: Nausea And Vomiting Oxycodone HCl (Roxicodone) 5 mg PO Q4H PRN PRN Reason: Pain, Moderate (4-6) Last Admin: 11/07/18 14:55 Dose: 5 mg Documented by: Sodium Chloride (Sodium Chloride Flush Syringe 10 Ml) 10 ml IV BID [facility] Last Admin: 11/07/18 10:35 Dose: 10 ml Documented by: Sodium Chloride (Sodium Chloride Flush Syringe 10 Ml) 10 ml IV PRN PRN PRN Reason: LINE FLUSH Review of Systems All systems: negative Physical Examination Vital signs: Vital Signs Temp Pulse Resp BP Pulse Ox 98 F 87 18 129/89 93 11/06/18 18:29 11/06/18 18:29 11/06/18 18:29 11/06/18 18:29 11/06/18 18:29 General appearance: no acute distress, alert Eyes: non-icteric ENT: oropharynx moist Neck: supple, no lymphadenopathy, no JVD Ascultation: Left: diminished breath sounds Cardiovascular: regular rate and rhythm Gastrointestinal: normoactive bowel sounds, soft, tender Integumentary: normal Extremities: no cyanosis, no edema Musculoskeletal: no deformities Gait: other (Can not assess.) normal mental status, non-focal exam, pupils equal and round, CN II-XII normal anxious Results - Laboratory Findings CBC and BMP: 11/07/18 05:06 11/07/18 05:06 Abnormal lab findings: Abnormal Labs 11/06/18 11/06/18 11/06/18 01:30 13:04 13:04 WBC RBC 5.16 H MCV MCH RDW 17.0 H Monocytes % (Manual) 12.0 H Lymphocytes # (Manual) 1.0 L NT-Pro-B Natriuret Pep Total Protein Albumin 3.8 L Free T4 Ur Specific [place] > 1.030 H 11/06/18 11/06/18 11/07/18 19:43 19:43 05:06 WBC 3.9 L RBC MCV 83 L MCH 27 L RDW 16.3 H Monocytes % (Manual) 20.0 H Lymphocytes # (Manual) 0.9 L NT-Pro-B Natriuret Pep 913.6 H Total Protein Albumin Free T4 1.63 H Ur Specific [place] 11/07/18 05:06 WBC RBC MCV MCH RDW Monocytes % (Manual) Lymphocytes # (Manual) NT-Pro-B Natriuret Pep Total Protein 6.0 L Albumin 3.4 L Free T4 Ur Specific [place] - Diagnostic Findings Chest x-ray: report reviewed (Small left pleural effusion reported.Pacemaker presentation.), image reviewed CT scan - chest: report reviewed, image reviewed Additional studies: Angio CT of chest done 11/06/18 reported. MPRESSION: Large fat density visualized left pleural space inferiorly, laterally and posteriorly as described. This may represent a large lipoma or lipomatosis of the pleural space. Liposarcoma cannot entirely excluded. Comparison with prior CT scans would be helpful. Moderate emphysematous changes present diffusely bilaterally, greatest in the upper lobes. Pacemaker in place as described. Subtle increased density dependently in the gallbladder. There may be sludge or noncalcified gallstones. Consider follow-up gallbladder ultrasound. Left rib fractures as described. Assessment and Plan 53 YO Male with COPD, CHF, Obesity Hypoventilation presents to ED for evaluation. Pt states that he has experienced pain to his left flank over the past 3 days with worsening symptoms over the past 2 days. Pt reports coughing episodes followed by pain to the left flank. Pt also reports diaphragmatic injury 3 months ago and that the was informed that he may need surgery. Pt acknowledges shortness of breath, and nonproductive cough, increased nebulizer therapy without relief. Pt also reports dypsnea on exertion, dypsnea at rest, decreased exercise tolerance, Orthopnea/PND, as well as leg edema. Pt denies fev er, chills, CP, Palpitations, NVD, Trauma, BRBPR, Prolonged travel/immobility, Unilateral leg swelling, calf pain, or recent ill contacts. Pt denies compliance with cardiac diet as well as medication. Pt unable to recall his prescribed medication. Pt transported to [facility] via private vehicle. Pt seen and evaluated in ED and found to have symptoms consistent with CHF Decompensation, as well as COPD Exacerbation. Pt admitted to telemetry. CT Chest pending at time of admission. No prior admission for review. No medication listed for reconciliation at time of admission. Patient still complaining left chest pain and left flank pain with cough. Patient presently on room air . O2 saturation 93%. Patient has history of smoking 1 to 2 cigaretts a day for 40 years. Denies alcohol or drug abuse. Patient and has 3 children. Allergic to doxycycline,Lisonipril, Spiranolactone. CAT scan of chest done on 11/06/18 IMPRESSION: Large fat density visualized left pleural space inferiorly, laterally and posteriorly as described. This may represent a large lipoma or lipomatosis of the pleural space. Liposarcoma cannot entirely excluded. Comparison with prior CT scans would be helpful. Moderate emphysematous changes present diffusely bilaterally, greatest in the upper lobes. Pacemaker in place as described. Subtle increased density dependently in the gallbladder. There may be sludge or noncalcified gallstones. Consider follow-up gallbladder ultrasound. Left rib fractures as described. Records from [facility] CAT scan done 10/14/18 reported diaphragmatic hernia with herniation of large Omental fat in the left lower chest. Reported consistent with diaphragmatic hernia. Old left rib fractures. Emphysematous changes in both lungs. Recommend Thoracic surgery consultation. - Patient Problems (1) Acute exacerbation of chronic obstructive pulmonary disease (COPD) Current Visit: Yes Status: Acute Plan to address problem: O2 2 litres O2. Albuterol/atrovent aerosol treatments q 6 hours. Continue I/V solumedrol Continue famotidine. SCDs Recommend S/C Lovenox. ABGs on room air (2) CHF (congestive heart failure) Current Visit: Yes Status: Acute Qualifiers: Heart failure chronicity: acute on chronic Plan to address problem: Management as per cardiology. (3) Pleural effusion Current Visit: Yes Status: Acute Plan to address problem: CT of the chest reported Omental fat. (4) Diaphragmatic hernia Current Visit: Yes Status: Acute Plan to address problem: With herniation of fat into the left lower chest. Recommend thoracic surgery evaluation.
[2018-11-08] MEDS: ROXICODONE PO PRN (02:19)
[2018-11-08] MEDS: PEPCID PO SCH ×2 (09:25→21:30)
[2018-11-08] MEDS: COZAAR PO SCH (09:25)
[2018-11-08] MEDS: SOLU-Medrol IV SCH ×2 (09:25→21:31)
[2018-11-08] MEDS: SODIUM CHLORIDE FLUSH SYRINGE 10 ML IV SCH ×2 (09:26→21:33)
[2018-11-08] MEDS: PROVENTIL IH PRN ×2 (09:44→17:40)
--- NOTE | 2018-11-08 09:59 | Progress Note ---
Assessment and Plan Left sided flank pain hx of left diaphragmatic hernia Chest CT scan reports a large lipoma versus lipomatosis of the left pleural space, moderate emphysematous changes and multiple left healed fractured ribs. Atypical chest pain Hx of COPD Hx of Nonischemic cardiomyopathy EF 45-50% by echo done 07/2018 at [facility] reports no significant CAD 08/2018 at [facility] Presence of AICD Hx of PE -on Xarelto as an outpatient. Hx of paroxysmal Afib per pt on amiodarone and Xarelto as an outpatient Tobacco abuse Recommendations: Resume home medications for paroxysmal afib and nonischemic cardiomyopathy. Echocardiogram for LVEF assessment. Subjective Date of service: 11/08/18 Interval history: Records received and reviewed. Objective Vital Signs Temp Pulse Pulse Pulse Resp Resp BP 11/08/18 09:46 11/08/18 08:22 77 11/08/18 07:42 97.3 F L 79 18 131/90 11/08/18 05:00 80 11/08/18 04:12 80 18 11/08/18 03:59 97.9 F 80 20 121/86 11/07/18 23:59 97.9 F 80 20 119/81 11/07/18 21:00 81 81 20 11/07/18 20:12 97.4 F L 81 20 139/94 11/07/18 16:02 97.7 F 18 140/97 11/07/18 12:04 Pulse Ox 11/08/18 09:46 96 11/08/18 08:22 11/08/18 07:42 95 11/08/18 05:00 11/08/18 04:12 11/08/18 03:59 92 11/07/18 23:59 95 11/07/18 21:00 11/07/18 20:12 94 11/07/18 16:02 11/07/18 12:04 95 - Physical Examination General: No Apparent Distress HEENT: Positive: PERRL Neck: Positive: trachea midline Cardiac: Positive: Reg Rate and Rhythm Lungs: Positive: Decreased Breath Sounds Neuro: Positive: Grossly Intact Extremities: Absent: edema
[2018-11-08] MEDS: MORPHINE IV PRN ×2 (14:41→19:34)
--- NOTE | 2018-11-08 14:59 | Progress Note ---
Assessment and Plan Acute exacerbation of chronic obstructive pulmonary disease (COPD) CHF (congestive heart failure) Obesity hypoventilation syndrome Diaphragm injury hx of RIB fracture DVT prophylaxis - continue bronchodilators with pulmonary hygiene per RT - contibnue systemic steroids with slow taper - continue empiric AB's - supplemental oxygen as needed to keep O2 sats > 90% - prn analgesia; rib fractures appear old and healing; ? steroid complication - GI & VTE prophylaxis - continue other car per attending / other consultants ... re-evaluate in am & prn Subjective Date of service: 11/08/18 Principal diagnosis: Ac. exacerbation of COPD; CHF; OHS; Diaphragm injury; hx of RIB fracture Interval history: Patient is seen today for: Acute exacerbation of chronic obstructive pulmonary disease (COPD); CHF (congestive heart failure); Obesity hypoventilation syndrome; Diaphragm injury; hx of RIB fracture Seen and examined at bedside; 24hour events reviewed; nursing and respiratory care staff consulted; no adverse overnight events reported to me; resting peacefully in bed; less SOB; still anxious; denies acute chest pains or palpitations; No N/V/F/C Objective Vital Signs - 12hr 11/08/18 11/08/18 11/08/18 03:59 04:12 05:00 Temperature 97.9 F Pulse Rate 80 80 Pulse Rate [ 80 Bilateral Lower Lobe] Respiratory 20 Rate Respiratory 18 Rate [Bilateral Lower Lobe] Blood Pressure 121/86 O2 Sat by Pulse 92 Oximetry 11/08/18 11/08/18 11/08/18 07:42 08:22 09:46 Temperature 97.3 F L Pulse Rate 79 77 Pulse Rate [ Bilateral Lower Lobe] Respiratory 18 Rate Respiratory Rate [Bilateral Lower Lobe] Blood Pressure 131/90 O2 Sat by Pulse 95 96 Oximetry 11/08/18 11:19 Temperature 97.6 F Pulse Rate 89 Pulse Rate [ Bilateral Lower Lobe] Respiratory 18 Rate Respiratory Rate [Bilateral Lower Lobe] Blood Pressure 127/82 O2 Sat by Pulse 98 Oximetry Constitutional: appears uncomfortable, other (middle aged obese AAM with mildly increased resp effort at rest) Eyes: non-icteric ENT: oropharynx moist, other (mallampati 3) Neck: supple, no lymphadenopathy, no JVD, other (large neck circumference) Effort: mildly labored Ascultation: Bilateral: diminished breath sounds, rhonchi (scant in bases) Percussion: Bilateral: not dull Cardiovascular: regular rate and rhythm Gastrointestinal: normoactive bowel sounds, soft, non-tender, non-distended Integumentary: normal Extremities: no cyanosis, no edema, pulses normal, no ischemia or petechiae Neurologic: normal mental status, non-focal exam, pupils equal and round, motor strength normal and Psychiatric: anxious CBC and BMP: 11/07/18 05:06 11/07/18 05:06 Abnormal lab findings: Abnormal Labs 11/06/18 11/06/18 11/06/18 01:30 13:04 13:04 WBC RBC 5.16 H MCV MCH RDW 17.0 H Monocytes % (Manual) 12.0 H Lymphocytes # (Manual) 1.0 L NT-Pro-B Natriuret Pep Total Protein Albumin 3.8 L Free T4 Ur Specific [place] > 1.030 H 11/06/18 11/06/18 11/07/18 19:43 19:43 05:06 WBC 3.9 L RBC MCV 83 L MCH 27 L RDW 16.3 H Monocytes % (Manual) 20.0 H Lymphocytes # (Manual) 0.9 L NT-Pro-B Natriuret Pep 913.6 H Total Protein Albumin Free T4 1.63 H Ur Specific [place] 11/07/18 05:06 WBC RBC MCV MCH RDW Monocytes % (Manual) Lymphocytes # (Manual) NT-Pro-B Natriuret Pep Total Protein 6.0 L Albumin 3.4 L Free T4 Ur Specific [place] CT scan - chest: image reviewed (upper lobe bullous emphysema; eventration of left hemidiaphragm) Allied health notes reviewed: nursing
[2018-11-08] MEDS ORDERED: LASIX 40 MG PO SCH (15:00)
[2018-11-08] MEDS ORDERED: AMIODARONE 200 MG PO SCH (15:00)
[2018-11-08] MEDS: LASIX PO SCH (15:45)
[2018-11-08] MEDS: CORDARONE PO SCH (15:45)
--- NOTE | 2018-11-08 17:05 | Progress Note ---
Assessment and Plan Assessment and plan: 53 YO Male with COPD, CHF, Obesity Hypoventilation presents to ED for evaluation. Pt states that he has experienced pain to his left flank over the past 3 days with worsening symptoms over the past 2 days. Pt reports coughing episodes followed by pain to the left flank. Pt also reports diaphragmatic inju ry 3 months ago and that the was informed that he may need surgery. Pt acknowledges shortness of breath, and nonproductive cough, increased nebulizer therapy without relief. Pt also reports dypsnea on exertion, dypsnea at rest, decreased exercise tolerance, Orthopnea/PND, as well as leg edema. Pt denies fever, chills, CP, Palpitations, NVD, Trauma, BRBPR, Prolonged travel/immobility, Unilateral leg swelling, calf pain, or recent ill contacts. Pt denies compliance with cardiac diet as well as medication. Pt unable to recall his prescribed medication. Pt transported to [facility] via private vehicle. Pt seen and evaluated in ED and found to have symptoms consistent with CHF Decompensation, as well as COPD Exacerbation. Pt admitted to telemetry. CT Chest pending at time of admission. No prior admission for review. No medication listed for reconciliation at time of admission. - Patient Problems (1) CHF (congestive heart failure) Current Visit: Yes Status: Acute Qualifiers: Heart failure chronicity: acute on chronic Plan to address problem: Continue current management, await cardiology consult, Echo, strict I/O, daily weight, bnp, thyroid panel, magnesium level, chest x ray, monitor uop q shift, monitor blood pressure q shift, afterload reduction. pulse oximetry (2) Obesity hypoventilation syndrome Current Visit: Yes Status: Acute Plan to address problem: supplemental oxygen, nebulizer therapy, NIPPV as clinically indicated. 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 Hematology eval PLERUTIC CHEST PAIN secondary to rib fracture DVT prophylaxis Current Visit: Yes Status: Acute Plan to address problem: SCD to BLE while in bed, hold anticoagulation until clarification of nature of diaphragm injury. History Interval history: Patient seen and examined this morning, still reports abdominal pain, chronic per the patient but intermittent. Hospitalist Physical - Physical exam Narrative exam: - EENT Eyes: Present: PERRL ENT: hearing intact, clear oral mucosa - Neck Neck: Present: supple, normal ROM - Respiratory Respiratory effort: normal Respiratory: bilateral: diminished, rhonchi - Cardiovascular Heart Sounds: Present: S1 & S2. Absent: rub, click - Extremities Extremities: pulses symmetrical Extremity abnormal: edema Peripheral Pulses: within normal limits - Abdominal General gastrointestinal: Present: soft, noted tender today, LLQ non-distended, normal bowel sounds Male genitourinary: Present: normal - Integumentary Integumentary: Present: clear, warm, dry - Musculoskeletal Musculoskeletal: gait normal, strength equal bilaterally - Psychiatric Psychiatric: appropriate mood/affect, intact judgment & insight - Neurologic Neurologic: CNII-XII intact, moves all extremities - Additional findings Additional findings: Left chest wall tenderness with palpation in area of the left flank at site of previous rib fractures. - Constitutional Vitals: Temp Pulse Resp BP Pulse Ox 97.6 F 83 18 128/89 93 11/08/18 15:34 11/08/18 15:34 11/08/18 15:34 11/08/18 15:34 11/08/18 15:34 General appearance: Present: no acute distress Results - Labs CBC & Chem 7: 11/07/18 05:06 11/07/18 05:06 Labs: Laboratory Last Values WBC 3.9 K/mm3 (4.5-11.0) L 11/07/18 05:06 RBC 4.65 M/mm3 (3.65-5.03) 11/07/18 05:06 Hgb 12.7 gm/dl (11.8-15.2) 11/07/18 05:06 Hct 38.6 % (35.5-45.6) 11/07/18 05:06 MCV 83 fl (84-94) L 11/07/18 05:06 MCH 27 pg (28-32) L 11/07/18 05:06 MCHC 33 % (32-34) 11/07/18 05:06 RDW 16.3 % (13.2-15.2) H 11/07/18 05:06 Plt Count 183 K/mm3 (140-440) 11/07/18 05:06 Villalba % (Auto) Gas Engine Mechanic 11/07/18 05:06 Add Manual Diff Complete 11/07/18 05:06 Total Counted 100 11/07/18 05:06 Seg Neuts % (Manual) 52.0 % (40.0-70.0) 11/07/18 05:06 0 % 11/07/18 05:06 23.0 % (13.4-35.0) 11/07/18 05:06 Reactive Lymphs % (Man) 0 % 11/07/18 05:06 20.0 % (0.0-7.3) H 11/07/18 05:06 4.0 % (0.0-4.3) 11/07/18 05:06 1.0 % (0.0-1.8) 11/07/18 05:06 0 % 11/07/18 05:06 0 % 11/07/18 05:06 0 % 11/07/18 05:06 0 % 11/07/18 05:06 Nucleated RBC % Not Reportable 11/07/18 05:06 Seg Neutrophils # Man 2.0 K/mm3 (1.8-7.7) 11/07/18 05:06 Band Neutrophils # 0.0 K/mm3 11/07/18 05:06 0.9 K/mm3 (1.2-5.4) L 11/07/18 05:06 Abs React Lymphs (Man) 0.0 K/mm3 11/07/18 05:06 0.8 K/mm3 (0.0-0.8) 11/07/18 05:06 0.2 K/mm3 (0.0-0.4) 11/07/18 05:06 0.0 K/mm3 (0.0-0.1) 11/07/18 05:06 0.0 K/mm3 11/07/18 05:06 0.0 K/mm3 11/07/18 05:06 0.0 K/mm3 11/07/18 05:06 Blast Cells # 0.0 K/mm3 11/07/18 05:06 WBC Morphology Not Reportable 11/07/18 05:06 Hypersegmented Neuts Not Reportable 11/07/18 05:06 Hyposegmented Neuts Not Reportable 11/07/18 05:06 Hypogranular Neuts Not Reportable 11/07/18 05:06 Not Reportable 11/07/18 05:06 Not Reportable 11/07/18 05:06 Not Reportable 11/07/18 05:06 Not Reportable 11/07/18 05:06 Not Reportable 11/07/18 05:06 Not Reportable 11/07/18 05:06 Not Reportable 11/07/18 05:06 Not Reportable 11/07/18 05:06 Plt Clumps, EDTA Not Reportable 11/07/18 05:06 Not Reportable 11/07/18 05:06 Not Reportable 11/07/18 05:06 Not Reportable 11/07/18 05:06 Plt Morphology Comment Not Reportable 11/07/18 05:06 RBC Morphology Normal 11/07/18 05:06 Dimorphic RBCs Not Reportable 11/07/18 05:06 Not Reportable 11/07/18 05:06 Not Reportable 11/07/18 05:06 Not Reportable 11/07/18 05:06 Not Reportable 11/07/18 05:06 Not Reportable 11/07/18 05:06 Not Reportable 11/07/18 05:06 Not Reportable 11/07/18 05:06 Not Reportable 11/07/18 05:06 Not Reportable 11/07/18 05:06 Not Reportable 11/07/18 05:06 Not Reportable 11/07/18 05:06 Not Reportable 11/07/18 05:06 Not Reportable 11/07/18 05:06 Not Reportable 11/07/18 05:06 Not Reportable 11/07/18 05:06 Not Reportable 11/07/18 05:06 Not Reportable 11/07/18 05:06 Not Reportable 11/07/18 05:06 Not Reportable 11/07/18 05:06 Acanthocytes (Spur) Not Reportable 11/07/18 05:06 Rouleaux Not Reportable 11/07/18 05:06 Not Reportable 11/07/18 05:06 Not Reportable 11/07/18 05:06 Not Reportable 11/07/18 05:06 Not Reportable 11/07/18 05:06 Hem Pathologist Commnt No 11/07/18 05:06 Sodium 142 mmol/L (137-145) 11/07/18 05:06 Potassium 4.4 mmol/L (3.6-5.0) 11/07/18 05:06 Chloride 105.6 mmol/L (98-107) 11/07/18 05:06 Carbon Dioxide 23 mmol/L (22-30) 11/07/18 05:06 18 mmol/L 11/07/18 05:06 BUN 14 mg/dL (9-20) 11/07/18 05:06 1.3 mg/dL (0.8-1.5) 11/07/18 05:06 Estimated GFR > 60 ml/min 11/07/18 05:06 11 % 11/07/18 05:06 Glucose 88 mg/dL (75-100) 11/07/18 05:06 Calcium 8.7 mg/dL (8.4-10.2) 11/07/18 05:06 Magnesium 2.30 mg/dL (1.7-2.3) 11/06/18 19:43 0.30 mg/dL (0.1-1.2) 11/07/18 05:06 AST 32 units/L (5-40) 11/07/18 05:06 ALT 18 units/L (7-56) 11/07/18 05:06 106 units/L (35-129) 11/07/18 05:06 < 0.010 ng/mL (0.00-0.029) 11/06/18 13:04 NT-Pro-B Natriuret Pep 913.6 pg/mL (0-900) H 11/06/18 19:43 6.0 g/dL (6.3-8.2) L 11/07/18 05:06 3.4 g/dL (3.9-5) L 11/07/18 05:06 1.3 % 11/07/18 05:06 TSH 0.950 mlU/mL (0.270-4.200) 11/06/18 19:43 Free T4 1.63 ng/dL (0.76-1.46) H 11/06/18 19:43 Yumiko (Yellow) 11/06/18 01:30 Slightly-cloudy (Clear) 11/06/18 01:30 5.0 (5.0-7.0) 11/06/18 01:30 Ur Specific Arrey > 1.030 (1.003-1.030) H 11/06/18 01:30 30 mg/dl mg/dL (Negative) 11/06/18 01:30 Neg mg/dL (Negative) 11/06/18 01:30 Neg mg/dL (Negative) 11/06/18 01:30 Sm (Negative) 11/06/18 01:30 Neg (Negative) 11/06/18 01:30 Neg (Negative) 11/06/18 01:30 2.0 mg/dL (<2.0) 11/06/18 01:30 Ur Leukocyte Esterase Neg (Negative) 11/06/18 01:30 2.0 /HPF (0.0-6.0) 11/06/18 01:30 3.0 /HPF (0.0-6.0) 11/06/18 01:30 U Epithel Cells (Auto) 1.0 /HPF (0-13.0) 11/06/18 01:30 3+ /HPF 11/06/18 01:30 Active Medications - Current Medications Current Medications: Generic Name Dose Route Start Last Admin Trade Name Freq PRN Reason Stop Dose Admin Acetaminophen 650 mg 11/06/18 17:35 Tylenol PO Q4H PRN Pain MILD(1-3)/Fever >100.5/LEON Albuterol 2.5 mg 11/06/18 17:35 11/08/18 09:44 Proventil IH 2.5 mg Q4HRT PRN Administration Shortness Of Breath Amiodarone HCl 200 mg 11/08/18 15:00 11/08/18 15:45 Cordarone PO 200 mg QDAY JARVIS Administration Famotidine 20 mg 11/06/18 22:00 11/08/18 09:25 Pepcid PO 20 mg BID JARVIS Administration Furosemide 40 mg 11/08/18 15:00 11/08/18 15:45 Lasix PO 40 mg QDAY JARVIS Administration Losartan Potassium 25 mg 11/08/18 10:00 11/08/18 09:25 Cozaar PO 25 mg QDAY JARVIS Administration Methylprednisolone Sodium Succinate 20 mg 11/07/18 10:00 11/08/18 09:25 Solu-Medrol IV 20 mg Q12HR JARVIS Administration Metoprolol Tartrate 25 mg 11/08/18 22:00 Lopressor PO BID JARVIS Morphine Sulfate 1 mg 11/08/18 14:36 11/08/18 14:41 Morphine IV 1 mg Q6H PRN Administration Pain, Moderate (4-6) Ondansetron HCl 4 mg 11/06/18 17:35 Zofran IV Q8H PRN Nausea And Vomiting Oxycodone HCl 5 mg 11/06/18 20:42 11/08/18 02:19 Roxicodone PO 5 mg Q4H PRN Administration Pain, Moderate (4-6) Sodium Chloride 10 ml 11/06/18 22:00 11/08/18 09:26 Sodium Chloride Flush Syringe 10 Ml IV 10 ml BID JARVIS Administration Sodium Chloride 10 ml 11/06/18 17:35 Sodium Chloride Flush Syringe 10 Ml IV PRN PRN LINE FLUSH
[2018-11-08] MEDS: LOPRESSOR PO SCH (21:30)
[2018-11-08] MEDS ORDERED: LOPRESSOR 25 MG PO SCH (22:00)
[2018-11-09] MEDS: MORPHINE IV PRN ×2 (01:46→10:36)
[2018-11-09] MEDS: PROVENTIL IH PRN ×3 (05:15→21:25)
[2018-11-09] MEDS: COZAAR PO SCH (10:34)
[2018-11-09] MEDS: CORDARONE PO SCH (10:34)
[2018-11-09] MEDS: PEPCID PO SCH ×2 (10:35→21:53)
[2018-11-09] MEDS: LOPRESSOR PO SCH ×2 (10:35→21:53)
[2018-11-09] MEDS: LASIX PO SCH (10:35)
[2018-11-09] MEDS: SODIUM CHLORIDE FLUSH SYRINGE 10 ML IV SCH ×2 (10:36→21:53)
[2018-11-09] MEDS: SOLU-Medrol IV SCH ×2 (10:36→21:53)
--- NOTE | 2018-11-09 11:09 | Discharge Summary ---
Providers - Providers Date of Admission: 11/06/18 17:35 Attending physician: MISAEL WILLIAMSON MD 11/07/18 11:51 Consult to Physician [CONS] Routine Comment: Consulting Provider: PATRICIA MIMS Physician Instructions: Reason For Exam: copd exacebation 11/08/18 16:51 Consult to Physician [CONS] Routine Comment: Consulting Provider: AZUCENA MIMS Physician Instructions: Reason For Exam: abdominal pain 11/08/18 17:05 Consult to Physician [CONS] Routine Comment: Consulting Provider: ELVIRA WEST Physician Instructions: Reason For Exam: avascular necrosis, ?pathologic Rib fracture Primary care physician: LAN HAWKINS Hospitalization Reason for admission: chf Condition: Stable Hospital course: 53 YO Male with COPD, CHF, Obesity Hypoventilation presents to ED for evaluation. Pt states that he has experienced pain to his left flank over the past 3 days with worsening symptoms over the past 2 days. Pt reports coughing episodes followed by pain to the left flank. Pt also reports diaphragmatic injury 3 months ago and that the was informed that he may need surgery. Pt acknowledges shortness of breath, and nonproductive cough, increased nebulizer therapy without relief. Pt also reports dypsnea on exertion, dypsnea at rest, decreased exercise tolerance, Orthopnea/PND, as well as leg edema. Pt denies fever, chills, CP, Palpitations, NVD, Trauma, BRBPR, Prolonged travel/immobility, Unilateral leg swelling, calf pain, or recent ill contacts. Pt denies compliance with cardiac diet as well as medication. Pt unable to recall his prescribed medication. Pt transported to [facility] via private vehicle. Pt seen and evaluated in ED and found to have symptoms consistent with CHF Decompensation, as well as COPD Exacerbation. Pt admitted to telemetry. CT Chest pending at time of admission. No prior admission for review. No medication listed for reconciliation at time of admission. ADVISED BY Hemonc about possible steroid induced osteonecrosis. Patient will follow with Surgery, heme, RHEUMATOLOGY, CARDIOLOGY, pulmonary and pcp outpatient also vitamin D with calcium ordered WEIGHTLOSS STRONGLY RECOMMENDED - Patient Problems (1) CHF (congestive heart failure) Current Visit: Yes Status: Acute Qualifiers: Heart failure chronicity: acute on chronic Plan to address problem: Continue current management, await cardiology consult, Echo, strict I/O, daily weight, bnp, thyroid panel, magnesium level, chest x ray, monitor uop q shift, monitor blood pressure q shift, afterload reduction. pulse oximetry (2) Obesity hypoventilation syndrome Current Visit: Yes Status: Acute Plan to address problem: supplemental oxygen, nebulizer therapy, NIPPV as clinically indicated. 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 Hematology eval PLERUTIC CHEST PAIN secondary to rib fracture Disposition: TO HOME OR SELFCARE Time spent for discharge: 35 MINS Core Measure Documentation - Palliative Care Palliative Care/ Comfort Measures: Not Applicable - Core Measures Any of the following diagnoses?: heart failure, none - Heart Failure Discharge Requirements TOO/ARB for LVSD if EF <40%: Yes Beta mar at discharge: Yes Exam - Physical Exam Narrative exam: - EENT Eyes: Present: PERRL ENT: hearing intact, clear oral mucosa - Neck Neck: Present: supple, normal ROM - Respiratory Respiratory effort: normal Respiratory: bilateral: diminished, rhonchi - Cardiovascular Heart Sounds: Present: S1 & S2. Absent: rub, click - Extremities Extremities: pulses symmetrical Extremity abnormal: edema Peripheral Pulses: within normal limits - Abdominal General gastrointestinal: Present: soft, noted tender today, LLQ non-distended, normal bowel sounds Male genitourinary: Present: normal - Integumentary Integumentary: Present: clear, warm, dry - Musculoskeletal Musculoskeletal: gait normal, strength equal bilaterally - Psychiatric Psychiatric: appropriate mood/affect, intact judgment & insight - Neurologic Neurologic: CNII-XII intact, moves all extremities - Additional findings Additional findings: Left chest wall tenderness with palpation in area of the left flank at site of previous rib fractures. - Constitutional Vitals: Temp Pulse Resp BP Pulse Ox 97.7 F 73 20 129/86 95 11/09/18 08:10 11/09/18 10:35 11/09/18 05:25 11/09/18 10:35 11/09/18 08:17 Plan Activity: advance as tolerated, fall precautions Diet: low fat Special Instructions: record daily weights, record daily BP diary Additional Instructions: follow with ct surgeon Follow up with: LAN HAWKINS MD [Primary Care Provider] - 7 Days PATRICIA MIMS MD [Staff Physician] - 7 Days RICHIE WYNN MD [Staff Physician] - 7 Days ZENAIDA PAL DO [Staff Physician] - 7 Days ELVIRA WEST MD [Staff Physician] - 7 Days KEVIN BROWN MD [Referring] - 7 Days Prescriptions: Albuterol 0.63% NEBS 2.5 mg INHALATION Q4H PRN #1 PRN Reason: Shortness Of Breath Amiodarone 200 mg PO QDAY #30 Calcium Carbonate/Vitamin D3 [Calcium 500 + Vit D3 400 Tab] 1 each PO BID #60 tablet Losartan [Cozaar] 25 mg PO QDAY #30 tablet Cymbalta 60 mg PO QDAY #30 Dulera 200 Mcg/5 Mcg Inhaler 200 mcg INHALATION BID #1 Lasix TAB 40 mg PO QDAY #30 Lopressor TAB 25 mg PO BID #60 Famotidine [Pepcid] 20 mg PO BID #60 tablet ProAir HFA Inhaler 2 puff IH Q4HR PRN #1 PRN Reason: Shortness Of Breath Xarelto 10 mg PO QDAY #30
--- NOTE | 2018-11-09 14:26 | Consultation ---
History of Present Illness Consult date: 11/09/18 Reason for consult: other (diaphragmatic hernia) Chief complaint: abdominal pain - History of present illness History of present illness: 53 year old male who presented to ED with abdominal / left flank pain and COPD exacerbation. 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 He was evaluated for it in [place] prior to moving to [place]. He was told he should get it repaired. He currently complains of mild to moderate lower abdominal and left flank pain. He is able to tolerate a diet and is being worked up by pulmonary and cardiology. Past History Past Medical History: COPD, heart failure, other (Obesity Hypoventilation, Diaphragmatic injury,) Past Surgical History: Other (Embelectomy) Social history: single, smoking. denies: alcohol abuse, prescription drug abuse Family history: diabetes, hypertension Medications and Allergies Allergies Allergy/AdvReac Type Severity Reaction Status Date / Time doxycycline Allergy Hives Verified 11/06/18 12:40 lisinopril Allergy Anaphylaxis Verified 11/06/18 12:39 spironolactone Allergy Hives Verified 11/06/18 12:40 Home Medications Medication Instructions Recorded Confirmed Last Taken Type Albuterol 0.63% NEBS 2.5 mg INHALATION Q4H PRN #1 11/09/18 Unknown Rx Amiodarone 200 mg PO QDAY #30 11/09/18 Unknown Rx Calcium Carbonate/Vitamin D3 1 each PO BID #60 tablet 11/09/18 Unknown Rx [Calcium 500 + Vit D3 400 Tab] Cymbalta 60 mg PO QDAY #30 11/09/18 Unknown Rx Dulera 200 Mcg/5 Mcg Inhaler 200 mcg INHALATION BID #1 11/09/18 Unknown Rx Famotidine [Pepcid] 20 mg PO BID #60 tablet 11/09/18 Unknown Rx Lasix TAB 40 mg PO QDAY #30 11/09/18 Unknown Rx Lopressor TAB 25 mg PO BID #60 11/09/18 Unknown Rx Losartan [Cozaar] 25 mg PO QDAY #30 tablet 11/09/18 Unknown Rx ProAir HFA Inhaler 2 puff IH Q4HR PRN #1 11/09/18 Unknown Rx Xarelto 10 mg PO QDAY #30 11/09/18 Unknown Rx Active Meds: Active Medications Acetaminophen (Tylenol) 650 mg PO Q4H PRN PRN Reason: Pain MILD(1-3)/Fever >100.5/LEON Albuterol (Proventil) 2.5 mg IH Q4HRT PRN PRN Reason: Shortness Of Breath Last Admin: 11/09/18 12:18 Dose: 2.5 mg Documented by: Amiodarone HCl (Cordarone) 200 mg PO QDAY [facility] Last Admin: 11/09/18 10:34 Dose: 200 mg Documented by: Famotidine (Pepcid) 20 mg PO BID [facility] Last Admin: 11/09/18 10:35 Dose: 20 mg Documented by: Furosemide (Lasix) 40 mg PO QDAY [facility] Last Admin: 11/09/18 10:35 Dose: 40 mg Documented by: Losartan Potassium (Cozaar) 25 mg PO QDAY [facility] Last Admin: 11/09/18 10:34 Dose: Not Given Documented by: Methylprednisolone Sodium Succinate (Solu-Medrol) 20 mg IV Q12HR [facility] Last Admin: 11/09/18 10:36 Dose: 20 mg Documented by: Metoprolol Tartrate (Lopressor) 25 mg PO BID [facility] Last Admin: 11/09/18 10:35 Dose: Not Given Documented by: Morphine Sulfate (Morphine) 1 mg IV Q6H PRN PRN Reason: Pain, Moderate (4-6) Last Admin: 11/09/18 10:36 Dose: 1 mg Documented by: Ondansetron HCl (Zofran) 4 mg IV Q8H PRN PRN Reason: Nausea And Vomiting Oxycodone HCl (Roxicodone) 5 mg PO Q4H PRN PRN Reason: Pain, Moderate (4-6) Last Admin: 11/08/18 02:19 Dose: 5 mg Documented by: Sodium Chloride (Sodium Chloride Flush Syringe 10 Ml) 10 ml IV BID [facility] Last Admin: 11/09/18 10:36 Dose: 10 ml Documented by: Sodium Chloride (Sodium Chloride Flush Syringe 10 Ml) 10 ml IV PRN PRN PRN Reason: LINE FLUSH Review of Systems - Respiratory cough - Gastrointestinal abdominal pain, no nausea, no vomiting Exam Vital Signs Temp Pulse Resp BP Pulse Ox 98 F 87 18 129/89 93 11/06/18 18:29 11/06/18 18:29 11/06/18 18:29 11/06/18 18:29 11/06/18 18:29 - General physical appearance Positive: well developed, well nourished, no distress, obese - Respiratory Positive: normal expansion, normal respiratory effort - Extremities Extremities: no ischemia - Abdomen Abdomen: Present: soft, other (obese, tender to deep palpation lower abdomen) Results - Labs 11/07/18 05:06 11/07/18 05:06 Abnormal lab results 11/06/18 11/08/18 11/09/18 Range/Units 19:43 20:52 09:37 POC ABG pO2 79 L (80-105) POC Glucose 135 H (70-105) [id number] 4.41 H (<=2.51) mg/L - Imaging CT scan - abdomen: report reviewed, image reviewed CT scan - chest: report reviewed (left sided diaphragmatic hernia abdominal fat herniating into the thoracic cavity), image reviewed Assessment and Plan A: Diaphragmatic hernia, stable, non obstructing. follow up with Dr. Christie / Dr. Lin [phone] for outpatient evaluation and treatment plan once COPD and CHF controlled and optimized. Will take some planning and coordination with his teams as he is also on xarelto for a hx of blood clots. COPD: treatment per primary
--- NOTE | 2018-11-09 15:28 | Progress Note ---
Assessment and Plan Acute exacerbation of chronic obstructive pulmonary disease (COPD) CHF (congestive heart failure) Obesity hypoventilation syndrome Diaphragm injury hx of RIB fracture DVT prophylaxis - continue bronchodilators with pulmonary hygiene per RT - contibnue systemic steroids with slow taper - continue empiric AB's - supplemental oxygen as needed to keep O2 sats > 90% - prn analgesia; rib fractures appear old and healing; ? steroid complication - GI & VTE prophylaxis - continue other care per attending / other consultants ... re-evaluate in am & prn Subjective Date of service: 11/09/18 Principal diagnosis: Ac. exacerbation of COPD; CHF; OHS; Diaphragm injury; hx of RIB fracture Interval history: Patient is seen today for: Acute exacerbation of chronic obstructive pulmonary disease (COPD); CHF (congestive heart failure); Obesity hypoventilation syndrome; Diaphragm injury; hx of RIB fracture Seen and examined at bedside; 24hour events reviewed; nursing and respiratory care staff consulted; no adverse overnight events reported to me; resting peacefully in bed; less SOB; No N/V/F/C Objective Vital Signs - 12hr 11/09/18 11/09/18 11/09/18 05:15 05:25 08:10 Temperature 97.7 F Pulse Rate 73 Pulse Rate [ 73 75 Anterior Bilateral Throughout] Respiratory 20 20 Rate [Anterior Bilateral Throughout] Blood Pressure 129/86 O2 Sat by Pulse 94 Oximetry 11/09/18 11/09/18 11/09/18 08:17 10:00 10:34 Temperature Pulse Rate 88 73 Pulse Rate [ Anterior Bilateral Throughout] Respiratory Rate [Anterior Bilateral Throughout] Blood Pressure 129/86 O2 Sat by Pulse 95 Oximetry 11/09/18 11/09/18 11/09/18 10:35 12:18 12:19 Temperature Pulse Rate 73 Pulse Rate [ 77 78 Anterior Bilateral Throughout] Respiratory 18 19 Rate [Anterior Bilateral Throughout] Blood Pressure 129/86 O2 Sat by Pulse Oximetry Constitutional: appears uncomfortable, other (middle aged obese AAM with mildly increased resp effort at rest) Eyes: non-icteric ENT: oropharynx moist, other (mallampati 3) Neck: supple, no lymphadenopathy, no JVD, other (large neck circumference) Effort: mildly labored Ascultation: Bilateral: diminished breath sounds, rhonchi (scant in bases) Percussion: Bilateral: not dull Cardiovascular: regular rate and rhythm Gastrointestinal: normoactive bowel sounds, soft, non-tender, non-distended Integumentary: normal Extremities: no cyanosis, no edema, pulses normal, no ischemia or petechiae Neurologic: normal mental status, non-focal exam, pupils equal and round, motor strength normal and Psychiatric: anxious CBC and BMP: 11/07/18 05:06 11/07/18 05:06 ABG, PT/INR, D-dimer: ABG POC ABG pH 7.418 (7.35-7.45) 11/09/18 09:37 POC ABG pCO2 40.2 (35-45) 11/09/18 09:37 POC ABG pO2 79 (80-105) L 11/09/18 09:37 POC ABG HCO3 26.0 (22-26 mml/L) 11/09/18 09:37 POC ABG Total CO2 27 (23-27mmol/L) 11/09/18 09:37 POC ABG O2 Sat 96 11/09/18 09:37 Abnormal lab findings: Abnormal Labs 11/06/18 11/06/18 11/06/18 01:30 13:04 13:04 WBC RBC 5.16 H MCV MCH RDW 17.0 H Monocytes % (Manual) 12.0 H Lymphocytes # (Manual) 1.0 L POC ABG pO2 POC Glucose NT-Pro-B Natriuret Pep Total Protein Albumin 3.8 L Wxtk-7-Shhvnxxdzwmqb Free T4 Ur Specific [place] > 1.030 H 11/06/18 11/06/18 11/06/18 19:43 19:43 19:43 WBC RBC MCV MCH RDW Monocytes % (Manual) Lymphocytes # (Manual) POC ABG pO2 POC Glucose NT-Pro-B Natriuret Pep 913.6 H Total Protein Albumin Fzvq-6-Ohixpgfraenih 4.41 H Free T4 1.63 H Ur Specific [place] 11/07/18 11/07/18 11/08/18 05:06 05:06 20:52 WBC 3.9 L RBC MCV 83 L MCH 27 L RDW 16.3 H Monocytes % (Manual) 20.0 H Lymphocytes # (Manual) 0.9 L POC ABG pO2 POC Glucose 135 H NT-Pro-B Natriuret Pep Total Protein 6.0 L Albumin 3.4 L Drwp-4-Mjaafeqyvadbm Free T4 Ur Specific [place] 11/09/18 09:37 WBC RBC MCV MCH RDW Monocytes % (Manual) Lymphocytes # (Manual) POC ABG pO2 79 L POC Glucose NT-Pro-B Natriuret Pep Total Protein Albumin Mlcg-8-Ufogelnpclsqh Free T4 Ur Specific [place] Allied health notes reviewed: nursing
[2018-11-10] MEDS: MORPHINE IV PRN (04:12)
[2018-11-10 05:58] LABS: Albumin 3.4 g/dL (3.8-4.8); Gamma Globulin 0.9 g/dL (0.8-1.7)
[2018-11-10] MEDS: PROVENTIL IH PRN (06:26)
--- NOTE | 2018-11-10 07:43 | Progress Note ---
Assessment and Plan Assessment and plan: 53 YO Male with COPD, CHF, Obesity Hypoventilation presents to ED for evaluation. Pt states that he has experienced pain to his left flank over the past 3 days with worsening symptoms over the past 2 days. Pt reports coughing episodes followed by pain to the left flank. Pt also reports diaphragmatic inju ry 3 months ago and that the was informed that he may need surgery. Pt acknowledges shortness of breath, and nonproductive cough, increased nebulizer therapy without relief. Pt also reports dypsnea on exertion, dypsnea at rest, decreased exercise tolerance, Orthopnea/PND, as well as leg edema. Pt denies fever, chills, CP, Palpitations, NVD, Trauma, BRBPR, Prolonged travel/immobility, Unilateral leg swelling, calf pain, or recent ill contacts. Pt denies compliance with cardiac diet as well as medication. Pt unable to recall his prescribed medication. Pt transported to [facility] via private vehicle. Pt seen and evaluated in ED and found to have symptoms consistent with CHF Decompensation, as well as COPD Exacerbation. Pt admitted to telemetry. CT Chest pending at time of admission. No prior admission for review. No medication listed for reconciliation at time of admission. - Patient Problems (1) CHF (congestive heart failure) Current Visit: Yes Status: Acute Qualifiers: Heart failure chronicity: acute on chronic Plan to address problem: Continue current management, strict I/O, daily weight, bnp, thyroid panel, magnesium level, chest x ray, monitor uop q shift, monitor blood pressure q shift, afterload reduction. pulse oximetry awaiting discharge (2) Obesity hypoventilation syndrome Current Visit: Yes Status: Acute Plan to address problem: supplemental oxygen, nebulizer therapy, NIPPV as clinically indicated. 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 Hematology eval PLERUTIC CHEST PAIN secondary to rib fracture DVT prophylaxis Current Visit: Yes Status: Acute Plan to address problem: SCD to BLE while in bed, hold anticoagulation until clarification of nature of diaphragm injury. History Interval history: Patient seen and examined this morning, improved respiration, chronic per the patient but intermittent. Hospitalist Physical - Physical exam Narrative exam: - EENT Eyes: Present: PERRL ENT: hearing intact, clear oral mucosa - Neck Neck: Present: supple, normal ROM - Respiratory Respiratory effort: normal Respiratory: bilateral: diminished, rhonchi - Cardiovascular Heart Sounds: Present: S1 & S2. Absent: rub, click - Extremities Extremities: pulses symmetrical Extremity abnormal: edema Peripheral Pulses: within normal limits - Abdominal General gastrointestinal: Present: soft, noted tender today, LLQ non-distended, normal bowel sounds Male genitourinary: Present: normal - Integumentary Integumentary: Present: clear, warm, dry - Musculoskeletal Musculoskeletal: gait normal, strength equal bilaterally - Psychiatric Psychiatric: appropriate mood/affect, intact judgment & insight - Neurologic Neurologic: CNII-XII intact, moves all extremities - Additional findings Additional findings: Left chest wall tenderness with palpation in area of the left flank at site of previous rib fractures. - Constitutional Vitals: Temp Pulse Resp BP Pulse Ox 98.0 F 68 15 104/69 92 11/09/18 23:42 11/10/18 06:38 11/10/18 06:38 11/09/18 23:42 11/09/18 23:42 General appearance: Present: no acute distress Results - Labs CBC & Chem 7: 11/07/18 05:06 11/07/18 05:06 Labs: Laboratory Last Values WBC 3.9 K/mm3 (4.5-11.0) L 11/07/18 05:06 RBC 4.65 M/mm3 (3.65-5.03) 11/07/18 05:06 Hgb 12.7 gm/dl (11.8-15.2) 11/07/18 05:06 Hct 38.6 % (35.5-45.6) 11/07/18 05:06 MCV 83 fl (84-94) L 11/07/18 05:06 MCH 27 pg (28-32) L 11/07/18 05:06 MCHC 33 % (32-34) 11/07/18 05:06 RDW 16.3 % (13.2-15.2) H 11/07/18 05:06 Plt Count 183 K/mm3 (140-440) 11/07/18 05:06 Cherry % (Auto) Electronic Equipment Set Up Operator 11/07/18 05:06 Add Manual Diff Complete 11/07/18 05:06 Total Counted 100 11/07/18 05:06 Seg Neuts % (Manual) 52.0 % (40.0-70.0) 11/07/18 05:06 0 % 11/07/18 05:06 23.0 % (13.4-35.0) 11/07/18 05:06 Reactive Lymphs % (Man) 0 % 11/07/18 05:06 20.0 % (0.0-7.3) H 11/07/18 05:06 4.0 % (0.0-4.3) 11/07/18 05:06 1.0 % (0.0-1.8) 11/07/18 05:06 0 % 11/07/18 05:06 0 % 11/07/18 05:06 0 % 11/07/18 05:06 0 % 11/07/18 05:06 Nucleated RBC % Not Reportable 11/07/18 05:06 Seg Neutrophils # Man 2.0 K/mm3 (1.8-7.7) 11/07/18 05:06 Band Neutrophils # 0.0 K/mm3 11/07/18 05:06 0.9 K/mm3 (1.2-5.4) L 11/07/18 05:06 Abs React Lymphs (Man) 0.0 K/mm3 11/07/18 05:06 0.8 K/mm3 (0.0-0.8) 11/07/18 05:06 0.2 K/mm3 (0.0-0.4) 11/07/18 05:06 0.0 K/mm3 (0.0-0.1) 11/07/18 05:06 0.0 K/mm3 11/07/18 05:06 0.0 K/mm3 11/07/18 05:06 0.0 K/mm3 11/07/18 05:06 Blast Cells # 0.0 K/mm3 11/07/18 05:06 WBC Morphology Not Reportable 11/07/18 05:06 Hypersegmented Neuts Not Reportable 11/07/18 05:06 Hyposegmented Neuts Not Reportable 11/07/18 05:06 Hypogranular Neuts Not Reportable 11/07/18 05:06 Not Reportable 11/07/18 05:06 Not Reportable 11/07/18 05:06 Not Reportable 11/07/18 05:06 Not Reportable 11/07/18 05:06 Not Reportable 11/07/18 05:06 Not Reportable 11/07/18 05:06 Not Reportable 11/07/18 05:06 Not Reportable 11/07/18 05:06 Plt Clumps, EDTA Not Reportable 11/07/18 05:06 Not Reportable 11/07/18 05:06 Not Reportable 11/07/18 05:06 Not Reportable 11/07/18 05:06 Plt Morphology Comment Not Reportable 11/07/18 05:06 RBC Morphology Normal 11/07/18 05:06 Dimorphic RBCs Not Reportable 11/07/18 05:06 Not Reportable 11/07/18 05:06 Not Reportable 11/07/18 05:06 Not Reportable 11/07/18 05:06 Not Reportable 11/07/18 05:06 Not Reportable 11/07/18 05:06 Not Reportable 11/07/18 05:06 Not Reportable 11/07/18 05:06 Not Reportable 11/07/18 05:06 Not Reportable 11/07/18 05:06 Not Reportable 11/07/18 05:06 Not Reportable 11/07/18 05:06 Not Reportable 11/07/18 05:06 Not Reportable 11/07/18 05:06 Not Reportable 11/07/18 05:06 Not Reportable 11/07/18 05:06 Not Reportable 11/07/18 05:06 Not Reportable 11/07/18 05:06 Not Reportable 11/07/18 05:06 Not Reportable 11/07/18 05:06 Acanthocytes (Spur) Not Reportable 11/07/18 05:06 Rouleaux Not Reportable 11/07/18 05:06 Not Reportable 11/07/18 05:06 Not Reportable 11/07/18 05:06 Not Reportable 11/07/18 05:06 Not Reportable 11/07/18 05:06 Hem Pathologist Commnt No 11/07/18 05:06 POC ABG pH 7.418 (7.35-7.45) 11/09/18 09:37 POC ABG pCO2 40.2 (35-45) 11/09/18 09:37 POC ABG pO2 79 (80-105) L 11/09/18 09:37 POC ABG HCO3 26.0 (22-26 mml/L) 11/09/18 09:37 POC ABG Total CO2 27 (23-27mmol/L) 11/09/18 09:37 POC ABG O2 Sat 96 11/09/18 09:37 POC ABG Base Excess 1 ((-2) - (+3)mmol/L) 11/09/18 09:37 21 % 11/09/18 09:37 Sodium 142 mmol/L (137-145) 11/07/18 05:06 Potassium 4.4 mmol/L (3.6-5.0) 11/07/18 05:06 Chloride 105.6 mmol/L (98-107) 11/07/18 05:06 Carbon Dioxide 23 mmol/L (22-30) 11/07/18 05:06 18 mmol/L 11/07/18 05:06 BUN 14 mg/dL (9-20) 11/07/18 05:06 1.3 mg/dL (0.8-1.5) 11/07/18 05:06 Estimated GFR > 60 ml/min 11/07/18 05:06 11 % 11/07/18 05:06 Glucose 88 mg/dL (75-100) 11/07/18 05:06 POC Glucose 135 (70-105) H 11/08/18 20:52 Calcium 8.7 mg/dL (8.4-10.2) 11/07/18 05:06 Magnesium 2.30 mg/dL (1.7-2.3) 11/06/18 19:43 0.30 mg/dL (0.1-1.2) 11/07/18 05:06 AST 32 units/L (5-40) 11/07/18 05:06 ALT 18 units/L (7-56) 11/07/18 05:06 106 units/L (35-129) 11/07/18 05:06 < 0.010 ng/mL (0.00-0.029) 11/06/18 13:04 NT-Pro-B Natriuret Pep 913.6 pg/mL (0-900) H 11/06/18 19:43 6.4 g/dL (6.1-8.1) 11/06/18 19:43 6.0 g/dL (6.3-8.2) L 11/07/18 05:06 3.4 g/dL (3.9-5) L 11/07/18 05:06 1.3 % 11/07/18 05:06 0.4 g/dL (0.2-0.3) H 11/06/18 19:43 1.0 g/dL (0.5-0.9) H 11/06/18 19:43 0.4 g/dL (0.2-0.5) 11/06/18 19:43 4.41 mg/L (<=2.51) H 11/06/18 19:43 0.9 g/dL (0.8-1.7) 11/06/18 19:43 Abnorm Protein Band 1 see below 11/06/18 19:43 PEP Interpretation see below H 11/06/18 19:43 TSH 0.950 mlU/mL (0.270-4.200) 11/06/18 19:43 Free T4 1.63 ng/dL (0.76-1.46) H 11/06/18 19:43 Yumiko (Yellow) 11/06/18 01:30 Slightly-cloudy (Clear) 11/06/18 01:30 5.0 (5.0-7.0) 11/06/18 01:30 Ur Specific [place] > 1.030 (1.003-1.030) H 11/06/18 01:30 30 mg/dl mg/dL (Negative) 11/06/18 01:30 Neg mg/dL (Negative) 11/06/18 01:30 Neg mg/dL (Negative) 11/06/18 01:30 Sm (Negative) 11/06/18 01:30 Neg (Negative) 06/25/19 01:30 Neg (Negative) 11/06/18 01:30 2.0 mg/dL (<2.0) 11/06/18 01:30 Ur Leukocyte Esterase Neg (Negative) 11/06/18 01:30 2.0 /HPF (0.0-6.0) 11/06/18 01:30 3.0 /HPF (0.0-6.0) 11/06/18 01:30 U Epithel Cells (Auto) 1.0 /HPF (0-13.0) 11/06/18 01:30 3+ /HPF 11/06/18 01:30 Immunofix Electrophor see below 11/06/18 19:43 Active Medications - Current Medications Current Medications: Generic Name Dose Route Start Last Admin Trade Name Freq PRN Reason Stop Dose Admin Acetaminophen 650 mg 11/06/18 17:35 Tylenol PO Q4H PRN Pain MILD(1-3)/Fever >100.5/LEON Albuterol 2.5 mg 11/06/18 17:35 11/10/18 06:26 Proventil IH 2.5 mg Q4HRT PRN Administration Shortness Of Breath Amiodarone HCl 200 mg 11/08/18 15:00 11/09/18 10:34 Cordarone PO 200 mg QDAY JARVIS Administration Famotidine 20 mg 11/06/18 22:00 11/09/18 21:53 Pepcid PO 20 mg BID JARVIS Administration Furosemide 40 mg 11/08/18 15:00 11/09/18 10:35 Lasix PO 40 mg QDAY JARVIS Administration Losartan Potassium 25 mg 11/08/18 10:00 11/09/18 10:34 Cozaar PO Not Given QDAY JARVIS Methylprednisolone Sodium Succinate 20 mg 11/07/18 10:00 11/09/18 21:53 Solu-Medrol IV 20 mg Q12HR JARVIS Administration Metoprolol Tartrate 25 mg 11/08/18 22:00 11/09/18 21:53 Lopressor PO 25 mg BID JARVIS Administration Morphine Sulfate 1 mg 11/08/18 14:36 11/10/18 04:12 Morphine IV 1 mg Q6H PRN Administration Pain, Moderate (4-6) Ondansetron HCl 4 mg 11/06/18 17:35 Zofran IV Q8H PRN Nausea And Vomiting Oxycodone HCl 5 mg 11/06/18 20:42 11/08/18 02:19 Roxicodone PO 5 mg Q4H PRN Administration Pain, Moderate (4-6) Sodium Chloride 10 ml 11/06/18 22:00 11/09/18 21:53 Sodium Chloride Flush Syringe 10 Ml IV 10 ml BID JARVIS Administration Sodium Chloride 10 ml 11/06/18 17:35 Sodium Chloride Flush Syringe 10 Ml IV PRN PRN LINE FLUSH
--- NOTE | 2018-11-10 08:06 | Progress Note ---
Assessment and Plan Acute exacerbation of chronic obstructive pulmonary disease (COPD) CHF (congestive heart failure) Obesity hypoventilation syndrome Diaphragm injury hx of RIB fracture DVT prophylaxis - continue bronchodilators with pulmonary hygiene per RT - steroids with slow taper - complete empiric AB's - supplemental oxygen as needed to keep O2 sats > 90% - prn analgesia; rib fractures appear old and healing - VTE prophylaxis -LABA/LAMA on discharge -Early outpatient pulmonary follow up for PFTs ( evaluate pulmonary physiology) and evaluation for sleep apnea on discharge -Discharge planning, discussed with Dr. Jama Subjective Date of service: 11/10/18 Principal diagnosis: Ac. exacerbation of COPD; CHF; OHS; Diaphragm injury; hx of RIB fracture Interval history: Patient is seen today for: Acute exacerbation of chronic obstructive pulmonary disease (COPD); CHF (congestive heart failure); Obesity hypoventilation syndrome; Diaphragm injury; hx of RIB fracture Seen and examined at bedside; 24hour events reviewed; nursing and respiratory care staff consulted; no adverse overnight events reported to me; resting peacefully in bed; less SOB; discharge planning on going, no fevers, no chills, no chest pain Objective Vital Signs - 12hr 11/09/18 11/09/18 11/09/18 20:19 21:26 21:38 Temperature Pulse Rate 83 Pulse Rate [ 92 H 90 Anterior Bilateral Throughout] Respiratory Rate Respiratory 12 13 Rate [Anterior Bilateral Throughout] Blood Pressure O2 Sat by Pulse Oximetry 11/09/18 11/10/18 11/10/18 23:42 04:12 06:26 Temperature 98.0 F Pulse Rate 81 Pulse Rate [ 65 Anterior Bilateral Throughout] Respiratory 18 18 Rate Respiratory 14 Rate [Anterior Bilateral Throughout] Blood Pressure 104/69 O2 Sat by Pulse 92 Oximetry 11/10/18 06:38 Temperature Pulse Rate Pulse Rate [ 68 Anterior Bilateral Throughout] Respiratory Rate Respiratory 15 Rate [Anterior Bilateral Throughout] Blood Pressure O2 Sat by Pulse Oximetry Constitutional: no acute distress, other (middle aged obese AAM with normal resp effort at rest) Eyes: non-icteric ENT: oropharynx moist, other (mallampati 3) Neck: supple, no lymphadenopathy, no JVD, other (large neck circumference) Effort: mildly labored Ascultation: Bilateral: diminished breath sounds, rhonchi (scant in bases) Percussion: Bilateral: not dull Cardiovascular: regular rate and rhythm Gastrointestinal: normoactive bowel sounds, soft, non-tender, non-distended Integumentary: normal Extremities: no cyanosis, no edema, pulses normal, no ischemia or petechiae Neurologic: normal mental status, non-focal exam, pupils equal and round, motor strength normal and Psychiatric: anxious CBC and BMP: 11/07/18 05:06 11/07/18 05:06 ABG, PT/INR, D-dimer: ABG POC ABG pH 7.418 (7.35-7.45) 11/09/18 09:37 POC ABG pCO2 40.2 (35-45) 11/09/18 09:37 POC ABG pO2 79 (80-105) L 11/09/18 09:37 POC ABG HCO3 26.0 (22-26 mml/L) 11/09/18 09:37 POC ABG Total CO2 27 (23-27mmol/L) 11/09/18 09:37 POC ABG O2 Sat 96 11/09/18 09:37 Abnormal lab findings: Abnormal Labs 11/06/18 11/06/18 11/06/18 01:30 13:04 13:04 WBC RBC 5.16 H MCV MCH RDW 17.0 H Monocytes % (Manual) 12.0 H Lymphocytes # (Manual) 1.0 L POC ABG pO2 POC Glucose NT-Pro-B Natriuret Pep Total Protein Albumin 3.8 L Wqrup-2-Oteuysqka Ajadx-4-Hinfwsdpj Wkcd-4-Ysgonimfwapqn PEP Interpretation Free T4 Ur Specific [place] > 1.030 H 11/06/18 11/06/18 11/06/18 19:43 19:43 19:43 WBC RBC MCV MCH RDW Monocytes % (Manual) Lymphocytes # (Manual) POC ABG pO2 POC Glucose NT-Pro-B Natriuret Pep 913.6 H Total Protein Albumin Ssffl-9-Ylyhorrgq Bicyr-1-Zgcczbneb Cujm-8-Iawepssvlxdfm 4.41 H PEP Interpretation Free T4 1.63 H Ur Specific [place] 11/06/18 11/07/18 11/07/18 19:43 05:06 05:06 WBC 3.9 L RBC MCV 83 L MCH 27 L RDW 16.3 H Monocytes % (Manual) 20.0 H Lymphocytes # (Manual) 0.9 L POC ABG pO2 POC Glucose NT-Pro-B Natriuret Pep Total Protein 6.0 L Albumin 3.4 L 3.4 L Ftoli-1-Gmbexzcvz 0.4 H Vmrvu-3-Nrhkwggck 1.0 H Euqu-4-Fkldctwnlayfy PEP Interpretation see below H Free T4 Ur Specific [place] 11/08/18 11/09/18 20:52 09:37 WBC RBC MCV MCH RDW Monocytes % (Manual) Lymphocytes # (Manual) POC ABG pO2 79 L POC Glucose 135 H NT-Pro-B Natriuret Pep Total Protein Albumin Jnpvy-3-Beukscbmr Pkzef-5-Kbdbdoujj Qmka-1-Awdyxcgjdijym PEP Interpretation Free T4 Ur Specific [place] Chest x-ray: image reviewed (Chronic pulmonary changes, cardiac device) Allied health notes reviewed: nursing
[2018-11-10 08:23] VITALS: BP 126/86
--- NOTE | 2018-11-10 17:31 | Event Note ---
Date: 11/09/18 [id number]
--- NOTE | 2018-11-11 01:13 | Consultation ---
PHYSICIAN: Dr. Jama. REASON FOR CONSULTATION: Right hip avascular necrosis and rib fractures. HISTORY OF PRESENT ILLNESS: I saw the patient, a 53-year-old male with history of COPD on steroids intermittently for more than 10 years, history of congestive heart failure, obesity, hypoventilation syndrome. The patient has moved from [place]. He came to the hospital because of left flank pain. He informed that in the past he was told that he has rib fractures. I have been consulted because of avascular necrosis and rib fractures. History of shortness of breath with a history of cough present and history of leg swelling present. No fever, no chills, no chest pain but has left flank pain, no palpitations, no nausea, no vomiting, no diarrhea, no bleeding per rectum. PAST MEDICAL HISTORY: As above. PAST SURGICAL HISTORY: Embolectomy. SOCIAL HISTORY: No history of tobacco or alcohol usage. FAMILY HISTORY: Diabetes and hypertension. ALLERGIES: DOXYCYCLINE, LISINOPRIL, SPIRONOLACTONE. PRESENT MEDICATIONS: Include Tylenol, metoprolol, Zofran, Solu-Medrol. PHYSICAL EXAMINATION: VITAL SIGNS: Temperature 98, pulse 81, respirations 18, BP 120/80. HEENT: No pallor, no icterus. NECK: No neck lymph nodes. HEART: S1, S2. LUNGS: Clear to auscultation. ABDOMEN: Soft. EXTREMITIES: No calf tenderness. NEUROLOGIC: Alert, awake, answers questions appropriately. LABORATORY DATA: White cell 3.9, hemoglobin 12, MCV 83, platelets 183, potassium 4.4, creatinine 1.3, calcium 8.7. No M-spike detected. TSH 0.95. No monoclonal proteins detected. RADIOLOGY: Abdomen and pelvis CT shows large amount of fat density in the left lung field extending superiorly and posteriorly left lung base. Old left rib fractures. There is a large amount of adipose tissue emanating from the abdomen to the left pleural space and also mention of hip avascular necrosis. They also mentioned liposarcoma cannot be ruled out entirely. ASSESSMENT: 1. Rib fractures. This may be steroid related. 2. Mention of avascular right hip changes. This may be secondary to steroids. 3. Fat abnormality in the left pleural/chest area likely liposarcoma cannot be excluded. This is followed up as an outpatient. 4. History of chronic obstructive pulmonary disease. 5. History of congestive heart failure. 6. History of sleep apnea. I will follow the patient during inpatient stay and then in the clinic setting. JOB# [id number] RAFAEL/TIBURCIO
[2018-11-20 16:26] LABS: Albumin SEE SCANNED RESULT; Creatinine, Random Urine SEE SCANNED RESULT; Protein/Creatinine Ratio SEE SCANNED RESULT
[2018-11-20 16:27] LABS: Abnormal Protein Band 1 SEE SCANNED RESULT; Abnormal Protein Band 2 SEE SCANNED RESULT; Gamma Globulin SEE SCANNED RESULT; Interpretation SEE SCANNED RESULT
== END 2018-11-10 08:35 | disposition home or self-care (01) | DRG 292 ==
LOC: ED 12:30 → 4A 17:35
PROVIDERS: ADMIT Internal Medicine; ATTEND Internal Medicine
PROC: 4A033R1 Measurement of Arterial Saturation, Peripheral, Percutaneous Approach (ICD-10-PCS; principal; 2018-11-09)
DX: I11.0 Hypertensive heart disease with heart failure (principal); J44.1 Chronic obstructive pulmonary disease with (acute) exacerbation; E66.2 Morbid (severe) obesity with alveolar hypoventilation; S27.809A Unspecified injury of diaphragm, initial encounter; M87.151 Osteonecrosis due to drugs, right femur; I42.8 Other cardiomyopathies; I50.9 Heart failure, unspecified; K44.9 Diaphragmatic hernia without obstruction or gangrene; T38.0X5A Adverse effect of glucocorticoids and synthetic analogues, initial encounter; R07.81 Pleurodynia; R07.89 Other chest pain; F17.200 Nicotine dependence, unspecified, uncomplicated; I48.0 Paroxysmal atrial fibrillation; Z95.810 Presence of automatic (implantable) cardiac defibrillator; Y92.89 Other specified places as the place of occurrence of the external cause; Z83.3 Family history of diabetes mellitus; Z82.49 Family history of ischemic heart disease and other diseases of the circulatory system; Z79.01 Long term (current) use of anticoagulants; Z87.81 Personal history of (healed) traumatic fracture
CPT/HCPCS: 36415; 36600; 71046; 71260; 74177; 80053; 81001; 82232; 82803; 82962; 83735; 83880; 84165; 84166; 84439; 84443; 84484; 85007; 85025; 86334; 93005; 93010; 93306; 94640; G0378; J1885; J2270; J2405; J2920; Q9967